=== PATIENT | male | born 1950 | race Caucasian/White ===

== ENCOUNTER 2017-06-22 18:18 | Emergency (ER) | payer BC, MEDICARE ==
[2017-06-22 18:58] LABS: BASOPHILS # (AUTO) 0.1 10^3/uL (0.0-0.1); BASOPHILS % (AUTO) 0.7 %; EOSINOPHILS # (AUTO) 0.2 10^3/uL (0.0-0.7); EOSINOPHILS % (AUTO) 1.5 %; HGB - HEMOGLOBIN 15.5 g/dL (14.0-18.0); LYMPHOCYTES # (AUTO) 1.5 10^3/uL (1.5-3.5); LYMPHOCYTES % (AUTO) 14.9 %; MEAN CORPUSCULAR HEMOGLOBIN 28.2 pg (27.0-31.0); MEAN CORPUSCULAR HGB CONC 33.8 g/dL (32.0-36.0); MEAN CORPUSCULAR VOLUME 83.5 fL (80.0-94.0); MEAN PLATELET VOLUME 9.2 fL (7.4-11.4); MONOCYTES # (AUTO) 0.8 10^3/uL (0.0-1.0); MONOCYTES % (AUTO) 7.9 %; NEUTROPHILS # (AUTO) 7.5 10^3/uL (1.5-6.6); PLT - PLATELET COUNT 180 10^3/uL (130-450); RED BLOOD COUNT 5.49 10^6/uL (4.70-6.10); WHITE BLOOD COUNT 9.9 x10^3/uL (4.8-10.8)
[2017-06-22 19:09] LABS: ALBUMIN 4.7 g/dL (3.2-5.5); ALBUMIN/GLOBULIN RATIO 1.5 (1.0-2.2); BILIRUBIN,TOTAL 0.5 mg/dL (0.2-1.0); CALCIUM 9.2 mg/dL (8.5-10.3); CREATININE 0.8 mg/dL (0.6-1.2); TOTAL PROTEIN 7.9 g/dL (6.7-8.2)
[2017-06-22 21:14] LABS: BILIRUBIN,URINE NEGATIVE (NEGATIVE); CLARITY,URINE CLEAR (CLEAR); GLUCOSE, URINE (UA) NEGATIVE (NEGATIVE); KETONES,URINE (UA) NEGATIVE (NEGATIVE); LEUKOCYTE ESTERASE, URINE NEGATIVE (NEGATIVE); NITRITE,URINE NEGATIVE (NEGATIVE); OCCULT BLOOD,URINE NEGATIVE (NEGATIVE); PH,URINE 5.5 PH (5.0-7.5); PROTEIN,URINE NEGATIVE (NEGATIVE); UROBILINOGEN,URINE 0.2 (NORMAL) E.U./dL (NORMAL)
--- NOTE | 2017-06-22 21:20 | XRAY Report ---
EXAM: CHEST RADIOGRAPHY EXAM DATE: 06/22/2017 08:43 PM. CLINICAL HISTORY: Epigastric pain. COMPARISON: None. TECHNIQUE: 2 views. FINDINGS: Lungs/Pleura: No focal opacities evident. No pleural effusion. No pneumothorax. Normal volumes. Mediastinum: Heart size is normal. Trachea is midline. Other: None. IMPRESSION: Negative for an acute cardiopulmonary abnormality. [facility] Referring Provider Line: [phone] SITE ID: [id number]
--- NOTE | 2017-06-22 21:20 | XRAY Preliminary Report ---
Exam: XR CHEST 2 VIEW X-RAY IMPRESSION: Negative for an acute cardiopulmonary abnormality. [facility] SITE ID: [id number]
--- NOTE | 2017-06-22 21:33 | ED Physician Documentation ---
PD HPI ABD PAIN - Stated complaint Stated Complaint: STOMACH PX, HEADACHE - Chief complaint Chief Complaint: Abd Pain - History obtained from History obtained from: Patient, Family - History of Present Illness Timing - onset: Yesterday Timing - details: Gradual onset, Intermittant Quality: Cramping, Aching Location: Epigastric Radiation: Chest, Upper back Worsened by: Eating, Position Associated symptoms: No: Fever, Nausea, Vomiting, Diarrhea, Constipation Similar symptoms before: Has not had sx before Recently seen: Not recently seen - Additional information Additional information: Patient is a 66 year old male with no significant past medical history who is presenting to the emergency department for abdominal pain. According to patient and over the last couple of days patient has had epigastric and substernal pain. Patient states that he just thought that it would go away. Patient states that it seemed worse after eating. Patient states that the pain goes into his back and his chest. Patient denies vomiting, fevers or chills. Review of Systems Constitutional: denies: Fever, Chills Eyes: reports: Reviewed and negative Ears: reports: Reviewed and negative Nose: reports: Reviewed and negative Throat: reports: Reviewed and negative Cardiac: reports: Chest pain / pressure. denies: Palpitations, Calf pain Respiratory: denies: Dyspnea GI: reports: Abdominal Pain, Nausea. denies: Vomiting, Constipation, Diarrhea : reports: Reviewed and negative Musculoskeletal: reports: Back pain. denies: Neck pain, Extremity pain Neurologic: denies: Generalized weakness, Focal weakness Immunocompromised: denies: Immunocompromised PD PAST MEDICAL HISTORY - Past Medical History Past Medical History: Yes Cardiovascular: None Respiratory: None Neuro: None Endocrine/Autoimmune: Type 2 diabetes GI: GERD : Kidney stones, Other HEENT: None Psych: None Musculoskeletal: None Other Past Medical History: Prostate CA - Past Surgical History Past Surgical History: Yes - Present Medications Home Medications: Ambulatory Orders Medication Instructions Recorded Confirmed Ciprofloxacin HCl [Cipro] 500 mg PO BID #14 tablet 06/22/17 Metronidazole [Flagyl] 500 mg PO TID #21 tablet 06/22/17 Olmesartan Medoxomil [Benicar] 25 mg PO DAILY 06/22/17 06/22/17 Ondansetron Odt [Zofran] 4 mg TL Q6H PRN #14 tablet 06/22/17 Ursodiol 300 mg PO BID #20 capsule 06/22/17 metFORMIN [Glucophage] 500 mg PO QID 06/22/17 06/22/17 - Allergies Allergies/Adverse Reactions: Allergies Allergy/AdvReac Type Severity Reaction Status Date / Time No Known Drug Allergies Allergy Verified 06/22/17 18:29 - Social History Does the pt smoke?: No Smoking Status: Never smoker Does the pt drink ETOH?: No Does the pt have substance abuse?: No - Immunizations Immunizations are current?: Yes - POLST Patient has POLST: No PD ED PE NORMAL - Vitals Vital signs reviewed: Yes - General General: Alert and oriented X 3, No acute distress - HEENT HEENT: Atraumatic, PERRL, Moist mucous membranes - Neck Neck: Supple, no meningeal sign - Cardiac Cardiac: RRR, No murmur - Respiratory Respiratory: No respiratory distress - Derm Derm: Normal color, Warm and dry, No rash - Extremities Extremities: No deformity, No edema - Neuro Neuro: Alert and oriented X 3, No motor deficit, Normal speech Eye Opening: Spontaneous PD ED PE EXPANDED - Abdomen Abdomen: Tender to palpation, Epigastric, Generalized/diffuse. No: Rebound, Guarding Results - Vitals Vitals: Vital Signs - 24 hr 06/22/17 06/22/17 18:26 23:27 Temperature 36.8 C Heart Rate 85 75 Respiratory 18 16 Rate Blood Pressure 145/91 H 176/102 H O2 Saturation 97 96 Oxygen O2 Source Room air - EKG (time done) 2020 Rate: Rate (enter#) (73) Rhythm: NSR [place]: Normal Intervals: Normal RI QRS: Normal Ischemia: Normal ST segments Compare to prior EKG: Old EKG unavailable - Labs Labs: Laboratory Tests 06/22/17 06/22/17 06/22/17 18:30 18:54 18:54 WBC 9.9 RBC 5.49 Hgb 15.5 Hct 45.9 MCV 83.5 MCH 28.2 MCHC 33.8 RDW 14.0 Plt Count 180 MPV 9.2 Neut # 7.5 H Lymph # 1.5 [place] # 0.8 Eos # 0.2 Baso # 0.1 Absolute Nucleated RBC 0.00 Nucleated RBC % 0.0 Sodium 137 Potassium 3.6 Chloride 101 Carbon Dioxide 24 Anion Gap 12.0 BUN 21 H Creatinine 0.8 Estimated GFR (MDRD) 97 Glucose 120 H Calcium 9.2 Total Bilirubin 0.5 AST 32 ALT 32 Alkaline Phosphatase 70 Troponin I Total Protein 7.9 Albumin 4.7 Globulin 3.2 Albumin/Globulin Ratio 1.5 Lipase 36 Urine Color YELLOW Urine Clarity CLEAR Urine pH 5.5 Ur Specific [place] 1.025 Urine Protein NEGATIVE Urine Glucose (UA) NEGATIVE Urine Ketones NEGATIVE Urine Occult Blood NEGATIVE Urine Nitrite NEGATIVE Urine Bilirubin NEGATIVE Urine Urobilinogen 0.2 (NORMAL) Ur Leukocyte Esterase NEGATIVE Ur Microscopic Review NOT INDICATED Urine Culture Comments NOT INDICATED 06/22/17 06/22/17 18:54 21:29 WBC RBC Hgb Hct MCV MCH MCHC RDW Plt Count MPV Neut # Lymph # [place] # Eos # Baso # Absolute Nucleated RBC Nucleated RBC % Sodium Potassium Chloride Carbon Dioxide Anion Gap BUN Creatinine Estimated GFR (MDRD) Glucose Calcium Total Bilirubin AST ALT Alkaline Phosphatase Troponin I < 0.04 < 0.04 Total Protein Albumin Globulin Albumin/Globulin Ratio Lipase Urine Color Urine Clarity Urine pH Ur Specific [place] Urine Protein Urine Glucose (UA) Urine Ketones Urine Occult Blood Urine Nitrite Urine Bilirubin Urine Urobilinogen Ur Leukocyte Esterase Ur Microscopic Review Urine Culture Comments - Rads (name of study) ct abdomen and pelvis Radiology: Final report received (gallbladder wall thickening and pericholecystic fluid) PD MEDICAL DECISION MAKING - ED course Complexity details: reviewed old records, reviewed results, re-evaluated patient , considered differential, d/w patient, d/w family, d/w building consultant ED course: patient was seen and examined at bedside. IV access was gained and labs were drawn. ekg was performed and was normal sinus. Patient was treated with a fluid bolus. patient's urine showed no signs of hematuria. Ct was ordered. When patient returned from imaging the results were reviewed. patient was found to have acute cholecystitis. patient was made aware of the findings but stated that he did not want to stay. orthopedically impaired teacher surgeon was contacted and the case was discussed with him. He stated we could start the patient on antibiotics and the patient could follow up tomorrow in the clinic. Patient was given detailed discharge and follow up instructions. Family understood and was stable for discharge with outpatient follow up. Departure - Departure Disposition: Home, Self Care Clinical Impression: Cholecystitis Condition: Good Instructions: ED Gallbladder Infec Poss Follow-Up: Ever Morgan MD [Provider Admit Priv/Credential] - Tomorrow Prescriptions: Ciprofloxacin HCl [Cipro] 500 mg PO BID #14 tablet Metronidazole [Flagyl] 500 mg PO TID #21 tablet Ondansetron Odt [Zofran] 4 mg TL Q6H PRN #14 tablet PRN Reason: Nausea / Vomiting Ursodiol 300 mg PO BID #20 capsule Comments: Your symptoms today are being caused by an infection of your gallbladder. Normally they require surgical removal, but I understand you want to try antibiotics. You will be started on two different antibiotics. It is important that you eat a fat free diet and call the office of Dr. Heredia tomorrow to schedule a follow up appointment. You should return to the emergency department for fevers, chills, vomiting, new worsening or uncontrollable symptoms. Discharge Date/Time: 06/22/17 23:30
[2017-06-22] MEDS ORDERED: IOPAMIDOL-300 100 ML VIAL ONE (21:37)
[2017-06-22] MEDS ORDERED: IOPAMIDOL-300 100 ML VIAL IVP ONE (21:50)
--- NOTE | 2017-06-22 22:32 | CT Report ---
EXAM: CT ABDOMEN AND PELVIS EXAM DATE: 06/22/2017 09:54 PM. CLINICAL HISTORY: Diffuse abdominal pain. COMPARISONS: None. TECHNIQUE: Routine helical CT imaging was performed through the abdomen and pelvis. IV contrast: 100M L ISOVUE 300. Enteric contrast: No. Reconstructions: Coronal and sagittal. In accordance with CT protocol optimization, one or more of the following dose reduction techniques w ere utilized for this exam: automated exposure control, adjustment of mA and/or KV based on patient s ize, or use of iterative reconstructive technique. FINDINGS: Lung Bases: No focal consolidation. Coronary artery calcifications. Liver: Fatty infiltration. Gallbladder/Bile Ducts: Gallbladder wall thickening or pericholecystic fluid. Suspect subtle noncalci fied gallstones. Spleen: Mildly enlarged at 13.3 cm. Pancreas: Normal. Adrenal Glands: Normal. Kidneys: Normal. No masses or hydronephrosis. Peritoneal Cavity/Bowel: Moderate stool in the colon, right greater than left. There are some colonic diverticula but no diverticulitis is seen. No bowel obstruction. No free air or free fluid. No lymph adenopathy. Appendix appears normal. Pelvic Organs: Status post prostatectomy. Urinary bladder is unremarkable. Penile prosthesis is noted . Vasculature: Mild atherosclerosis. No aortic aneurysm. Bones: Degenerative changes in the spine. Other: None. IMPRESSION: 1. Gallbladder wall thickening or pericholecystic fluid with possible subtle stones in the gallbladde r. Findings are suspicious for cholecystitis. 2. Fatty liver and mild splenomegaly. 3. Moderate stool in the colon, right greater than left. 4. No appendicitis or diverticulitis. [facility] Referring Provider Line: [phone] SITE ID: [id number]
--- NOTE | 2017-06-22 22:32 | CT Preliminary Report ---
Exam: CT ABDOMEN/PELVIS W/ IMPRESSION: 1. Gallbladder wall thickening or pericholecystic fluid with possible subtle stones in the gallbladde r. Findings are suspicious for cholecystitis. 2. Fatty liver and mild splenomegaly. 3. Moderate stool in the colon, right greater than left. 4. No appendicitis or diverticulitis. [facility] SITE ID: [id number]
[2017-06-22] MEDS ORDERED: CIPROFLOXACIN 250 MG TABLET PO STA (22:59)
[2017-06-22] MEDS ORDERED: metroNIDAZOLE 250 MG TABLET PO STA (22:59)
[2017-06-22 23:31] VITALS: BP 176/102
== END 2017-06-22 23:30 | disposition home or self-care (01) ==
LOC: ED 18:18
DX: K81.9 Cholecystitis, unspecified (principal); E11.9 Type 2 diabetes mellitus without complications; Z79.84 Long term (current) use of oral hypoglycemic drugs; C61 Malignant neoplasm of prostate
CPT/HCPCS: 36415; 71046; 74177; 80053; 81003; 83690; 84484; 85025; 93005; 99283; 99284; A9270; Q9967; 81001; 87086

== ENCOUNTER 2018-03-03 18:15 | Emergency (ER) | payer BC, MEDICARE ==
[2018-03-03] MEDS ORDERED: fentaNYL 100 MCG/2 ML VIAL IVP STA (18:32)
[2018-03-03] MEDS ORDERED: ONDANSETRON 4 MG/2 ML VIAL IVP STA (18:32)
[2018-03-03] MEDS ORDERED: diazePAM 5 MG TABLET PO STA (18:33)
[2018-03-03] MEDS ORDERED: HYDROcod/ACETAM 10 MG/325 MG TABLET PO STA (18:34)
[2018-03-03] MEDS ORDERED: NAPROXEN 250 MG TABLET PO STA (18:34)
--- NOTE | 2018-03-03 20:38 | CT Report ---
Reason: head injury on ASA Procedure Date: 03/03/2018 Accession Number: [id number] / [id number] Procedure: CT - Head W/O CPT Code: FULL RESULT: EXAM: CT HEAD EXAM DATE: 03/03/2018 08:22 PM. CLINICAL HISTORY: Head injury on ASA. COMPARISON: None. TECHNIQUE: Multiaxial CT images were obtained from the foramen magnum to the vertex. Reformats: Sagittal and coronal. IV contrast: None. In accordance with CT protocol optimization, one or more of the following dose reduction techniques were utilized for this exam: automated exposure control, adjustment of mA and/or KV based on patient size, or use of iterative reconstructive technique. FINDINGS: Parenchyma: No intraparenchymal hemorrhage. No evidence of mass, midline shift, or CT findings of infarction. Mckinley-white differentiation is distinct. Extraaxial Spaces: Normal for age. No subdural or epidural collections identified. Ventricles: Normal in size and position. Sinuses and Orbits: Imaged paranasal sinuses, orbits, and mastoids show no significant abnormality. Bones: No evidence of fracture or calvarial defect. Other: None. IMPRESSION: Negative nonenhanced head CT. [facility]
[2018-03-03 20:50] VITALS: BP 142/90
--- NOTE | 2018-03-03 21:05 | XRAY Report ---
Reason: pain Procedure Date: 03/03/2018 Accession Number: [id number] / [id number] Procedure: XR - Hip w/Pelvis 2-3V LT CPT Code: FULL RESULT: EXAM: LEFT HIP AND PELVIS RADIOGRAPHY EXAM DATE: 03/03/2018 08:20 PM. HISTORY: Pain. COMPARISONS: Abdomen/pelvis w/contrast 06/22/2017 9:42 PM. TECHNIQUE: 1 view of the pelvis and 1 view of the hip. A total of 3 exposures are provided for review. FINDINGS: Bones: No acute displaced fracture or suspicious bony lesion is demonstrated. Possible cam-type impingement about the left hip joint. Joints: No dislocation. Mild bilateral hip joint degenerative change. Soft Tissues: Penile prosthesis noted. IMPRESSION: No acute bony abnormality. Possible cam-type left hip impingement suspected. [facility]
--- NOTE | 2018-03-03 21:06 | XRAY Report ---
Reason: back pain Procedure Date: 03/03/2018 Accession Number: [id number] / [id number] Procedure: XR - Lumbar Spine 2 View CPT Code: FULL RESULT: EXAM: LUMBOSACRAL SPINE RADIOGRAPHY EXAM DATE: 03/03/2018 08:20 PM. CLINICAL HISTORY: Back pain. Fall, landing on the back, pain. COMPARISONS: Abdomen and pelvis with contrast 06/22/2017 9:42 PM. TECHNIQUE: 3 views. FINDINGS: Alignment: No subluxation. Bones: Five [id number] lumbar vertebral bodies are present. No fractures or bone lesions. Disks: Multilevel disk space height loss as well as endplate osteophytosis. Moderate to severe degenerative change at L3-L4. Facets: Multilevel facet arthropathy. Sacroiliac Joints: No diastases Soft Tissues: The visualized bowel gas pattern is normal. IMPRESSION: No acute bony abnormality. Moderate to severe L3-L4 degenerative disk disease. [facility]
--- NOTE | 2018-03-03 21:52 | ED Physician Documentation ---
PD HPI Fall - Stated complaint Stated Complaint: GLF PELVIC PX - Chief complaint Chief Complaint: Trauma Ext - History obtained from History obtained from: Patient - History of Present Illness Mechanism of injury: Tripped, Slipped Fall distance: Standing position Where injury occurred: Other (outside on the ice) Injury(ies) location: Head, Back, Left Lower Extremity Severity Comments: moderate Quality of pain: Throbbing, Aching Associated symptoms: Other (mp ASA). No: LOC, AMS, Amnesia, Seizures, Ear drainage, Nasal drainage, Neck pain, Weakness, Paresthesias, Dyspnea, Nausea / vomiting Symptoms improve with: Position Worsens with: Movement, Palpation Contributing factors: Anticoagulated. No: Intoxicated Similar symptoms before: No diagnosis Recently seen: Not recently seen Review of Systems Constitutional: denies: Fever, Fatigue Eyes: denies: Discharge Ears: denies: Ear pain Nose: denies: Congestion Throat: denies: Sore throat Cardiac: denies: Chest pain / pressure Respiratory: denies: Cough GI: denies: Abdominal Pain : denies: Hematuria Skin: denies: Laceration (s) Musculoskeletal: reports: Back pain, Extremity pain Neurologic: reports: Head injury PD PAST MEDICAL HISTORY - Past Medical History Past Medical History: Yes Cardiovascular: None Respiratory: None Neuro: None Endocrine/Autoimmune: Type 2 diabetes GI: GERD : Kidney stones, Other HEENT: None Psych: None Musculoskeletal: Osteoarthritis Derm: None Other Past Medical History: prostate cancer - Past Surgical History Past Surgical History: Yes - Present Medications Home Medications: Ambulatory Orders Medication Instructions Recorded Confirmed Hydrocodone/Acetaminophen [[place] 1 each PO Q6HR PRN #10 tablet 03/03/18 5-325 Tablet] Naproxen 500 mg PO BID PRN #60 tablet 03/03/18 - Allergies Allergies/Adverse Reactions: Allergies Allergy/AdvReac Type Severity Reaction Status Date / Time No Known Drug Allergies Allergy Verified 03/03/18 18:22 - Social History Does the pt smoke?: No Smoking Status: Never smoker Does the pt drink ETOH?: No Does the pt have substance abuse?: No - Immunizations Immunizations are current?: Yes - POLST Patient has POLST: No PD ED PE NORMAL - General General: Alert and oriented X 3 - HEENT HEENT: No: Atraumatic (The patient Has tenderness to palpation of the posterior scalp, no laceration or significant contusion or crepitus) - Neck Neck: No bony TTP - Cardiac Cardiac: RRR, Strong equal pulses - Respiratory Respiratory: No respiratory distress, Clear bilaterally - Abdomen Abdomen: Soft, Non tender, Non distended - Back Back: No spinal TTP (The patient has tenderness in the lumbar spine, no ecchymosis, soft tissue swelling or crepitus) - Derm Derm: Normal color - Extremities Extremities: No deformity, Normal ROM s pain, No edema. No: No tenderness to palpate (The patient has tenderness to palpation of the left hip up to the iliac crest, there is no significant contusion, no crepitus, no laceration. The patient otherwise has no joint tenderness of the other major joints. The patient has normal radial and dorsalis pedis pulses and normal cap refill and normal sensation light touch) - Neuro Neuro: Alert and oriented X 3, cleat feeder 2-12 intact, No motor deficit, Normal speech Results - Vitals Vitals: Vital Signs - 24 hr 03/03/18 03/03/18 18:17 20:49 Temperature 36.8 C Heart Rate 83 77 Respiratory 18 16 Rate Blood Pressure 147/83 H 142/90 H O2 Saturation 97 95 Oxygen O2 Source Room air - Rads (name of study) CT head Radiology: Final report received, See rad report (IMPRESSION: Negative nonenhanced head CT. ) XR lumbar Radiology: Final report received, See rad report (IMPRESSION: No acute bony abno rmality. Moderate to severe L3-L4 degenerative disk disease. ) XR Hip Radiology: Final report received, See rad report (IMPRESSION: No acute bony abnormality. Possible cam-type left hip impingement suspected. ) PD MEDICAL DECISION MAKING - ED course ED course: No acute injury seen on the patient's workup, on reevaluation is resting comfortably and his pain is under control. I discussed with him the incidental finding seen on x-ray. I recommended that he follow-up with orthopedics for these findings. The patient understands and agrees. I discussed warning signs and recommended returning to the emergency department immediately for any worsening or any concerns. Departure - Departure Disposition: 01 Home, Self Care Clinical Impression: Closed head injury Qualifiers: Encounter type: initial encounter Qualified Code(s): S09.90XA - Unspecified injury of head, initial encounter Contusion, hip Qualifiers: Encounter type: initial encounter Laterality: left Qualified Code(s): S70.02XA - Contusion of left hip, initial encounter Lumbar contusion Qualifiers: Encounter type: initial encounter Qualified Code(s): S30.0XXA - Contusion of lower back and pelvis, initial encounter Condition: Good Instructions: ED Contusion Back, ED Head Injury Closed Ch, ED Contusion Lower Extr Ch Follow-Up: Tl Moise MD [Primary Care Provider] - Within 1 week [facility] [Provider Group] (Call to schedule a follow-up appointment regarding the chronic findings related to your hip) Prescriptions: Hydrocodone/Acetaminophen [[place] 5-325 Tablet] 1 each PO Q6HR PRN #10 tablet PRN Reason: Pain Naproxen 500 mg PO BID PRN #60 tablet PRN Reason: Pain Comments: Please follow-up with primary care for recheck and reevaluation. Please follow- up with orthopedics for the chronic findings regarding your hip. Please return to the emergency department immediately for any worsening or any concerns. Discharge Date/Time: 03/03/18 22:11
== END 2018-03-03 22:11 | disposition home or self-care (01) ==
LOC: EDUNIT# → ED 18:15
DX: S09.90XA Unspecified injury of head, initial encounter (principal); S70.02XA Contusion of left hip, initial encounter; S30.0XXA Contusion of lower back and pelvis, initial encounter; W00.0XXA Fall on same level due to ice and snow, initial encounter; C61 Malignant neoplasm of prostate
CPT/HCPCS: 70450; 72100; 73502; 99283; A9270

== ENCOUNTER 2019-10-04 20:25 | Emergency (ER) | payer BC, MEDICARE ==
--- NOTE | 2019-10-04 20:55 | ED Physician Documentation ---
PD HPI CHEST PAIN - Stated complaint Stated Complaint: ACID REFLUX - Chief complaint Chief Complaint: Abd Pain - History obtained from History obtained from: Patient - History of Present Illness Timing - onset: Enter time (173), Today Timing - onset during: Rest Timing - duration: Hours Timing - details: Abrupt onset, Still present Quality: Sharp, Indigestion, Pain Location: Substernal Radiation: Abdominal Improved by: Nothing Worsened by: Movement, Palpation, Position. No: Exertion, Inspiration Associated symptoms: Nausea, Vomiting, Feeling faint / dizzy. No: General Weakness, Palpitations, Cough Similar symptoms before: Has not had sx before Recently seen: Not recently seen - Additional information Additional information: 69-year-old male with a history of type 2 diabetes hypertension and was well this morning when he awakened he had a normal breakfast and then he did not eat the rest of the day. At about 530 this evening he developed acute abdominal pain with nausea and heartburn and he developed a headache. He felt that he had body pain all over and was unable to get into a comfortable position he was transported the hospital by his and he indicates that on the way here he violently vomited a number of times. He also indicates that at home he was able to get some relief by being in the hot shower. He denies any cannabis use. Review of Systems Constitutional: reports: Myalgias, Sweats. denies: Fever, Chills, Fatigue Eyes: denies: Decreased vision Ears: denies: Ear pain Nose: denies: Rhinorrhea / runny nose, Congestion Throat: denies: Sore throat Cardiac: reports: Chest pain / pressure. denies: Palpitations, Pedal edema, Calf pain Respiratory: denies: Dyspnea, Cough, Wheezing GI: reports: Abdominal Pain, Nausea, Vomiting. denies: Constipation, Diarrhea : denies: Dysuria, Frequency Skin: denies: Rash Musculoskeletal: denies: Neck pain, Back pain, Extremity pain Neurologic: denies: Generalized weakness, Focal weakness, Numbness PD PAST MEDICAL HISTORY - Past Medical History Cardiovascular: None Respiratory: None Neuro: None Endocrine/Autoimmune: Type 2 diabetes GI: GERD : Kidney stones, Other HEENT: None Psych: None Musculoskeletal: Osteoarthritis Derm: None - Past Surgical History Past Surgical History: Yes - Present Medications Home Medications: Ambulatory Orders Medication Instructions Recorded Confirmed Hydrocodone/Acetaminophen [[place] 1 each PO Q6HR PRN #10 tablet 03/03/18 5-325 Tablet] Naproxen 500 mg PO BID PRN #60 tablet 03/03/18 - Allergies Allergies/Adverse Reactions: Allergies Allergy/AdvReac Type Severity Reaction Status Date / Time No Known Drug Allergies Allergy Verified 03/03/18 18:22 - Social History Does the pt smoke?: No Smoking Status: Never smoker Does the pt drink ETOH?: No Does the pt have substance abuse?: No - Immunizations Immunizations are current?: Yes - POLST Patient has POLST: No PD ED PE NORMAL - Vitals Vital signs reviewed: Yes (hypertensive ) - General General: Alert and oriented X 3, No acute distress, Well developed/nourished, Other (prefers to lie with his eyes closed. ) - HEENT HEENT: Atraumatic, PERRL, EOMI - Neck Neck: Supple, no meningeal sign, No bony TTP - Cardiac Cardiac: No murmur, Other (tachy to 115) - Respiratory Respiratory: No respiratory distress, Clear bilaterally - Abdomen Abdomen: Normal bowel sounds, Soft, Non tender, Non distended, No organomegaly, Other (obese) - Back Back: No CVA TTP, No spinal TTP - Derm Derm: Normal color, Warm and dry, No rash - Extremities Extremities: No deformity, No edema - Neuro Neuro: Alert and oriented X 3, a r specialist 2-12 intact, No motor deficit, No sensory deficit, Normal speech Eye Opening: To Voice Motor: Obeys Commands Verbal: Oriented GCS Score: 14 - Psych Psych: Normal mood, Normal affect Results - Vitals Vitals: Vital Signs - 24 hr 10/04/19 10/04/19 10/04/19 20:36 20:57 21:05 Temperature 37.1 C Heart Rate 100 123 H Respiratory 16 18 18 Rate Blood Pressure 157/77 H 156/92 H O2 Saturation 98 99 10/04/19 10/04/19 10/04/19 21:13 21:36 22:15 Temperature Heart Rate 111 H 113 H Respiratory 18 18 18 Rate Blood Pressure 172/84 H 144/84 H O2 Saturation 99 99 10/04/19 10/04/19 10/04/19 22:55 23:35 23:58 Temperature Heart Rate 110 H 117 H Respiratory 17 19 18 Rate Blood Pressure 140/85 H 145/95 H O2 Saturation 98 97 10/04/19 10/05/19 10/05/19 23:59 01:06 01:09 Temperature Heart Rate 113 H Respiratory 18 18 19 Rate Blood Pressure 122/76 O2 Saturation 95 Oxygen O2 Source Room air - EKG (time done) 2046 Rate: Rate (enter#) (116) Rhythm: Atrial fibrillation Ischemia: Normal ST segments Compare to prior EKG: Changed from prior EKG (SPT 06-22-2017 the rhythm has changed to afib and the rate is increased. ) Computer interpretation: Agree with computer - Labs Labs: Laboratory Tests 10/04/19 10/04/19 10/04/19 21:00 21:00 21:00 WBC 8.7 RBC 5.09 Hgb 14.9 Hct 44.7 MCV 87.8 MCH 29.3 MCHC 33.3 RDW 12.9 Plt Count 141 MPV 11.0 Neut # (Auto) 7.3 H Lymph # (Auto) 1.0 L Nye # (Auto) 0.2 Eos # (Auto) 0.1 Baso # (Auto) 0.0 Absolute Nucleated RBC 0.00 Nucleated RBC % 0.0 Sodium 141 Potassium 3.7 Chloride 99 L Carbon Dioxide 25 Anion Gap 17.0 H BUN 17 Creatinine 1.0 Estimated GFR (MDRD) 74 L Glucose 140 H Calcium 9.6 Total Bilirubin 2.1 H AST 238 H ALT 176 H Alkaline Phosphatase 81 Troponin I High Sens 2.6 B-Natriuretic Peptide Total Protein 7.7 Albumin 4.5 Globulin 3.2 Albumin/Globulin Ratio 1.4 Lipase 56 H Urine Color Urine Clarity Urine pH Ur Specific [place] Urine Protein Urine Glucose (UA) Urine Ketones Urine Occult Blood Urine Nitrite Urine Bilirubin Urine Urobilinogen Ur Leukocyte Esterase Ur Microscopic Review Urine Culture Comments Urine Opiates Screen Ur Oxycodone Screen Urine Methadone Screen Ur Propoxyphene Screen Ur Barbiturates Screen Ur Tricyclics Screen Ur Phencyclidine Scrn Ur Amphetamine Screen U Methamphetamines Scrn U Benzodiazepines Scrn Urine Cocaine Screen U Cannabinoids Screen 10/04/19 10/04/19 10/04/19 21:00 22:20 22:20 WBC RBC Hgb Hct MCV MCH MCHC RDW Plt Count MPV Neut # (Auto) Lymph # (Auto) Nye # (Auto) Eos # (Auto) Baso # (Auto) Absolute Nucleated RBC Nucleated RBC % Sodium Potassium Chloride Carbon Dioxide Anion Gap BUN Creatinine Estimated GFR (MDRD) Glucose Calcium Total Bilirubin AST ALT Alkaline Phosphatase Troponin I High Sens B-Natriuretic Peptide 37 Total Protein Albumin Globulin Albumin/Globulin Ratio Lipase Urine Color YELLOW Urine Clarity CLEAR Urine pH 5.5 Ur Specific [place] 1.025 Urine Protein NEGATIVE Urine Glucose (UA) NEGATIVE Urine Ketones TRACE Urine Occult Blood NEGATIVE Urine Nitrite NEGATIVE Urine Bilirubin NEGATIVE Urine Urobilinogen 1 (NORMAL) Ur Leukocyte Esterase NEGATIVE Ur Microscopic Review NOT INDICATED Urine Culture Comments NOT INDICATED Urine Opiates Screen NEGATIVE Ur Oxycodone Screen NEGATIVE Urine Methadone Screen NEGATIVE Ur Propoxyphene Screen NEGATIVE Ur Barbiturates Screen NEGATIVE Ur Tricyclics Screen NEGATIVE Ur Phencyclidine Scrn NEGATIVE Ur Amphetamine Screen NEGATIVE U Methamphetamines Scrn NEGATIVE U Benzodiazepines Scrn NEGATIVE Urine Cocaine Screen NEGATIVE U Cannabinoids Screen NEGATIVE 10/05/19 00:24 WBC RBC Hgb Hct MCV MCH MCHC RDW Plt Count MPV Neut # (Auto) Lymph # (Auto) Nye # (Auto) Eos # (Auto) Baso # (Auto) Absolute Nucleated RBC Nucleated RBC % Sodium Potassium Chloride Carbon Dioxide Anion Gap BUN Creatinine Estimated GFR (MDRD) Glucose Calcium Total Bilirubin AST ALT Alkaline Phosphatase Troponin I High Sens 5.1 B-Natriuretic Peptide Total Protein Albumin Globulin Albumin/Globulin Ratio Lipase Urine Color Urine Clarity Urine pH Ur Specific [place] Urine Protein Urine Glucose (UA) Urine Ketones Urine Occult Blood Urine Nitrite Urine Bilirubin Urine Urobilinogen Ur Leukocyte Esterase Ur Microscopic Review Urine Culture Comments Urine Opiates Screen Ur Oxycodone Screen Urine Methadone Screen Ur Propoxyphene Screen Ur Barbiturates Screen Ur Tricyclics Screen Ur Phencyclidine Scrn Ur Amphetamine Screen U Methamphetamines Scrn U Benzodiazepines Scrn Urine Cocaine Screen U Cannabinoids Screen - Rads (name of study) chest Radiology: Prelim report reviewed (Impression: 1. Suboptimal film secondary to low lung volumes. 2. Possible bilateral infrahilar strandy opacities, most likely atelectasis. Focal consolidations are not identified. 3. Glenohumeral joint degeneration bilaterally.), EMP read indepedently, See rad report Procedures - IVC sono (time) 2129 Bedside IVC sono: IVC measures (cm) (1.02), Dehydration (est 1-2 liter deficit.) PD MEDICAL DECISION MAKING - ED course Complexity details: reviewed old records, reviewed results, re-evaluated patient, considered differential, d/w patient ED course: Previously well 69-year-old male with a history of type 2 diabetes and hypertension has had an episode this evening of reflux accompanied by overall body pains and inability to get comfortable. He subsequently developed a headache and his heartburn and nausea have improved. He did vomit on the way to the hospital and he has improvement with use of the Zofran. He does report getting relief being in the shower. He denies use of cannabis. His family history is remarkable to longevity. His parents are celebrating their 75th wedding aniversary today. On work-up here today we have noted his blood work is concerning for elevation in AST ALT and bilirubin with a normal alk phos. An ultrasound was obtained to rule out obstruction and he does have multiple gallstones but a normal appearing common bile duct and negative Garcia's as well as a normal wall thickness and no evidence of jose luis-Dianna cystic fluid. He was found to be dehydrated on interrogation of the inferior vena cava and he was tachycardic on arrival to the emergency department. Intravenous saline was begun. He was administered Zofran. He had improvement in his nausea he had resolution of his heartburn and he continued to have headache. He was subsequently administered Toradol intravenously. The patients symptoms are controlled and he continues to be tachy. He indicates he has a lot of stress at work. He works for [employer] and 1000 people per week are loosing their jobs. He is not ready to retire. Departure - Departure Disposition: 01 Home, Self Care Clinical Impression: Dehydration, Stress at work Cholelithiasis Qualifiers: Cholelithiasis location: gallbladder Cholecystitis presence: without cholecystitis Biliary obstruction: without biliary obstruction Qualified Code(s): K80.20 - Calculus of gallbladder without cholecystitis without obstruction Vomiting Qualifiers: Vomiting type: unspecified Vomiting Intractability: non-intractable Nausea presence: with nausea Qualified Code(s): R11.2 - Nausea with vomiting, unspecified Condition: Stable Instructions: Gallstones, ED Stress React, ED Dehydration, ED Nausea Vomiting Follow-Up: Tl Moise MD [Primary Care Provider] -
[2019-10-04 21:09] LABS: BASOPHILS % (AUTO) 0.5 %; EOSINOPHILS # (AUTO) 0.1 10^3/uL (0.0-0.7); HGB - HEMOGLOBIN 14.9 g/dL (14.0-18.0); MEAN CORPUSCULAR HEMOGLOBIN 29.3 pg (27.0-31.0); MEAN CORPUSCULAR HGB CONC 33.3 g/dL (32.0-36.0); MEAN CORPUSCULAR VOLUME 87.8 fL (80.0-94.0); MONOCYTES # (AUTO) 0.2 10^3/uL (0.0-1.0); MONOCYTES % (AUTO) 2.2 %; NEUTROPHILS # (AUTO) 7.3 10^3/uL (1.5-6.6); NEUTROPHILS % (AUTO) 83.8 %; PLT - PLATELET COUNT 141 10^3/uL (130-450); RED BLOOD COUNT 5.09 10^6/uL (4.70-6.10); RED CELL DISTRIBUTION WIDTH 12.9 % (12.0-15.0); WHITE BLOOD COUNT 8.7 x10^3/uL (4.8-10.8)
[2019-10-04 21:18] LABS: ALBUMIN 4.5 g/dL (3.2-5.5); ALBUMIN/GLOBULIN RATIO 1.4 (1.0-2.2); BILIRUBIN,TOTAL 2.1 mg/dL (0.2-1.0); CALCIUM 9.6 mg/dL (8.5-10.3); TOTAL PROTEIN 7.7 g/dL (6.7-8.2)
[2019-10-04] MEDS ORDERED: SODIUM CHLORIDE 0.9% 1,000 ML IV STA (21:46)
--- NOTE | 2019-10-04 21:52 | XRAY Report ---
PROCEDURE: Chest 1 View X-Ray INDICATIONS: chest pain TECHNIQUE: One view of the chest was acquired. COMPARISON: 06/22/2017 FINDINGS: Surgical changes and devices: None. Lungs and pleura: Low lung volumes crowd the central bronchovascular markings. Given this, questiona ble bilateral infrahilar strand-like opacities. No dense consolidations. No pleural effusions or pneu mothorax. Mediastinum: Mediastinal contours appear normal. Heart size is normal. Bones and chest wall: No suspicious bony lesions. Severe bilateral degeneration of the glenohumeral joints. Overlying soft tissues appear unremarkable. IMPRESSION: 1. Suboptimal film secondary to low lung volumes. 2. Possible bilateral infrahilar strandy opacities, most likely atelectasis. Focal consolidations are not identified. 3. Glenohumeral joint degeneration bilaterally. Reviewed by: Sherrell Cai MD on 10/04/2019 9:51 PM PDT Approved by: Sherrell Cai MD on 10/04/2019 9:51 PM PDT Station ID: [id number]
[2019-10-04 22:32] LABS: BILIRUBIN,URINE NEGATIVE (NEGATIVE); GLUCOSE, URINE (UA) NEGATIVE (NEGATIVE); KETONES,URINE (UA) TRACE mg/dL (NEGATIVE); LEUKOCYTE ESTERASE, URINE NEGATIVE (NEGATIVE); NITRITE,URINE NEGATIVE (NEGATIVE); OCCULT BLOOD,URINE NEGATIVE (NEGATIVE); PH,URINE 5.5 PH (5.0-7.5); PROTEIN,URINE NEGATIVE (NEGATIVE); UROBILINOGEN,URINE 1 (NORMAL) E.U./dL (NORMAL)
[2019-10-04 22:34] LABS: CLARITY,URINE CLEAR (CLEAR)
[2019-10-05] MEDS ORDERED: SODIUM CHLORIDE 0.9% 1,000 ML IV STA (00:09)
[2019-10-05] MEDS ORDERED: KETOROLAC 30 MG/ML VIAL IVP STA (00:09)
[2019-10-05] MEDS ORDERED: ONDANSETRON 4 MG/2 ML VIAL IVP STA (00:22)
[2019-10-05 00:33] LABS: MUDS CUTOFF CONCENTRATIONS CUTOFF CONC BELOW:
[2019-10-05 00:44] LABS: AMPHETAMINE SCREEN,URINE NEGATIVE (NEGATIVE); BENZODIAZEPINES SCREEN, URINE NEGATIVE (NEGATIVE); COCAINE SCREEN URINE NEGATIVE (NEGATIVE); METHADONE SCREEN, URINE NEGATIVE (NEGATIVE); METHAMPHETAMINES SCREEN, URINE NEGATIVE (NEGATIVE); OPIATE SCREEN, URINE NEGATIVE (NEGATIVE); OXYCODONE SCREEN, URINE NEGATIVE (NEGATIVE); PROPOXYPHENE SCREEN, URINE NEGATIVE (NEGATIVE); TRICYCLIC ANTIDEPRESSANT,URINE NEGATIVE (NEGATIVE)
[2019-10-05 01:07] VITALS: BP 122/76
[2019-10-05] MEDS ORDERED: ONDANSETRON ODT 4 MG Prepack 2 TL PRN (01:22)
--- NOTE | 2019-10-05 09:24 | Ultrasound Report ---
PROCEDURE: Abdomen Limited INDICATIONS: abdominal pain ? billiary obstruction TECHNIQUE: Real-time focused scanning was performed of the abdomen, with image documentation. COMPARISON: CT abdomen and pelvis, 06/22/2017. FINDINGS: There are gallstones and gallbladder sludge. Gallbladder wall thickness is normal. No jose luis cholecystic fluid collection or sonographic Garcia's sign. Liver is enlarged and demonstrates increased hepatic echotexture. Liver measures 22 cm in length. Right kidney is normal in size without hydronephrosis. A cortical scar is noted in the right kidney. There is a 7 mm nonshadowing echogenic focus in right kidney. IMPRESSION: 1. Cholelithiasis. No ultrasound findings to suggest acute cholecystitis. 2. Hepatomegaly. Liver demonstrates increased echotexture. Differential diagnoses include hepatic fat ty infiltration versus other hepatocellular disease. Please correlate with liver enzymes. 3. A 7 mm echogenic focus without shadowing adjacent to a cortical scar, most likely caused by a nons hadowing calcification. A differential diagnosis is a small angiomyolipoma. No hydronephrosis. Reviewed by: Merle Alvarez MD on 10/05/2019 9:23 AM PDT Approved by: Merle Alvarez MD on 10/05/2019 9:23 AM PDT Station ID: [id number]
== END 2019-10-05 01:42 | disposition home or self-care (01) ==
LOC: ED 20:25
DX: E86.0 Dehydration (principal); R11.10 Vomiting, unspecified; F43.9 Reaction to severe stress, unspecified; R94.5 Abnormal results of liver function studies; K80.20 Calculus of gallbladder without cholecystitis without obstruction; E11.9 Type 2 diabetes mellitus without complications; I10 Essential (primary) hypertension
CPT/HCPCS: 36415; 71045; 76705; 80053; 80306; 81001; 81003; 83690; 83880; 84484; 85025; 87086; 93005; 96361; 96374; 96375; 99284

== ENCOUNTER 2020-05-07 07:00 | Outpatient (CLI) | payer BC, MEDICARE | END 2020-05-07 23:59 | disposition home or self-care (01) | LOC: COV 07:00 | PROVIDERS: ATTEND Surgery | DX: Z01.812 Encounter for preprocedural laboratory examination (principal); K43.2 Incisional hernia without obstruction or gangrene; E11.9 Type 2 diabetes mellitus without complications; Z20.822 Contact with and (suspected) exposure to COVID-19 ==

== ENCOUNTER 2020-05-10 06:34 | Day surgery (SDC) | payer BC, MEDICARE ==
[~2020-05-10 06:34] MED LIST: ceFAZolin 2 GM/50 ML 2 GM/50 ML BAG IV ONE
[2020-05-10] MEDS ORDERED: LACTATED RINGERS 1,000 ML IV ONE ×2 (06:52→10:27)
--- NOTE | 2020-05-10 07:33 | ANESTHESIA ---
Pre-Anesthesia VS, & Labs - Diagnosis incisional hernia - Procedure incisional hernia repair Vital Signs: Temp Pulse Resp BP Pulse Ox 36 C L 16 L 16 145/96 H 95 05/10/20 06:40 05/10/20 06:40 05/10/20 06:40 05/10/20 06:40 05/10/20 06:40 Height: 6 ft Weight (kg): 104 kg Body Mass Index: 31.1 BMI Classification: Obese - NPO >8 hours - Lab Results Current Lab Results: Laboratory Tests 05/10/20 06:51: POC Whole Bld Glucose 176 H Home Medications and Allergies Home Medications: Ambulatory Orders Metformin HCl [Glucophage] 1,000 mg PO BIDWM 05/01/20 Olmesartan Medoxomil [Benicar] 20 mg PO DAILY 05/01/20 Rosuvastatin Calcium [Crestor] 20 mg PO DAILY 05/01/20 Metformin HCl [Glucophage] 1,000 mg PO BIDWM 05/01/20 Olmesartan Medoxomil [Benicar] 20 mg PO DAILY 05/01/20 Rosuvastatin Calcium [Crestor] 20 mg PO DAILY 05/01/20 Allergies/Adverse Reactions: Allergies Allergy/AdvReac Type Severity Reaction Status Date / Time No Known Drug Allergies Allergy Verified 03/03/18 18:22 Anes History & Medical History - Anesthetic History Anesthesia Complications: reports: No previous complications - Medical History Cardiovascular: reports: None Pulmonary: reports: None Gastrointestinal: reports: None Urinary: reports: Other Neuro: reports: None Musculoskeletal: reports: Osteoarthritis Endocrine/Autoimmune: reports: Type 2 diabetes Blood Disorders: reports: None Skin: reports: None Smoking Status: Never smoker History of Cancer?: Yes - Surgical History General: Colonoscopy Eyes Ears Nose Throat (EENT): Tonsil/Adenoidectomy Urologic: Prostatic surgery Exam Dental: WNL Neck Mobility: Normal Mallampati classification: II Thyromental Distance: greater than 6 cm Respiratory: Lungs clear Cardiovascular: Regular rate Plan Anesthesia Type: General Consent for Procedure(s) Verified and Reviewed: Yes Code Status: Attempt Resuscitation ASA classification: 2-Mild systemic disease Is this case an emergency?: No
[2020-05-10] MEDS ORDERED: METOCLOPRAMIDE 10 MG/2 ML VIAL IVP PRN (07:40)
[2020-05-10] MEDS ORDERED: fentaNYL 100 MCG/2 ML VIAL IVP PRN (07:40)
[2020-05-10] MEDS ORDERED: ATROPINE ABBOJECT 1 MG/10 ML SYRINGE IVP PRN (07:40)
[2020-05-10] MEDS ORDERED: NALOXONE 0.4 MG/ML VIAL IVP PRN (07:40)
[2020-05-10] MEDS ORDERED: ONDANSETRON 4 MG/2 ML VIAL IVP PRN ×2 (07:40→10:40)
[2020-05-10] MEDS ORDERED: MORPHINE 2 MG/ML CARPUJECT IVP PRN (07:40)
[2020-05-10] MEDS ORDERED: ePHEDrine 50 MG/ML VIAL IVP PRN (07:40)
[2020-05-10] MEDS ORDERED: HYDROmorphone 0.5 MG/0.5 ML SYRINGE IVP PRN ×2 (07:40→10:40)
[2020-05-10] MEDS ORDERED: LACTATED RINGERS 1,000 ML IV SCH (08:00)
[2020-05-10] MEDS ORDERED: BUPIVACAINE 0.5% PF 30 ML VIAL ONE (09:01)
[2020-05-10] MEDS ORDERED: ROCURONIUM 50 MG/5 ML VIAL ONE (09:15)
[2020-05-10] MEDS ORDERED: PROPOFOL 200 MG/20 ML VIAL IVP ONE ×2 (09:15→10:26)
[2020-05-10] MEDS ORDERED: fentaNYL 100 MCG/2 ML VIAL ONE ×2 (09:15→09:55)
[2020-05-10] MEDS ORDERED: LIDOCAINE-MPF 2% 5 ML VIAL ONE (09:15)
[2020-05-10] MEDS ORDERED: MIDAZOLAM 2 MG/2 ML VIAL ONE (09:15)
[2020-05-10] MEDS ORDERED: BUPIVACAINE 0.5% PF 30 ML VIAL INFIL ONE ×2 (09:37→10:14)
[2020-05-10] MEDS ORDERED: DEXAMETHASONE 4 MG/ML VIAL ONE (09:40)
[2020-05-10] MEDS ORDERED: ONDANSETRON 4 MG/2 ML VIAL ONE (09:40)
[2020-05-10] MEDS ORDERED: KETOROLAC 30 MG/ML VIAL ONE (09:41)
--- NOTE | 2020-05-10 10:25 | OPERATIVE REPORT ---
Operative Report - General Procedure Date: 05/10/20 Planned Procedure: Incisional herniorrhaphy with mesh Pre-Op Diagnosis: Incisional hernia in the supraumbilical position (ICD-10 K43.2) Procedure Performed: Incisional herniorrhaphy with mesh (CPT 35467 +[id number]) Post Op Diagnosis: Incisional hernia in the supraumbilical position - Procedure Note Primary Surgeon: Ever Morgan MD Anesthesia Provider: Louise Haynes CRNA Anesthesia Technique: General ET tube, Local (30 mL of half percent Marcaine) IV Fluids (mL): 200 Estimated Blood Loss (mL): 5 Drain/Tube Type: Other (None.) Complications: None. - Other Other Information/Narrative: After verbal and written informed consent was obtained detailing the operation, the alternatives the operation including no operation, risks of infection, bleeding requiring transfusion with its risks, nerve injury, and and after I met with the patient confirming the surgery and the site of surgery, the patient was brought to the operative suite and placed supine on the operating table. Great care was taken to avoid pressure points to prevent pressure necrosis or nerve injury. Monitoring devices were applied along with TEDs and pneumatic compression stockings (to prevent DVT). The patient received preoperative antibiotics for surgical prophylaxis. Louise Haynes CRNA sedated and anesthetized the patient for the entire procedure. The patient was prepped and draped in the usual sterile manner. With the patient draped my initials were clearly visible. A "time in" then confirmed that the patient was identified with 3 identifiers (name, date, and medical record number), the history and physical was updated and in the chart, the signed consent confirming the procedure was in the chart, the patient was in the correct position, the aforementioned prophylactic measures were in place or given, we had the correct personnel and equipment to complete the procedure and that anesthesia and the surgical team were given an opportunity to express any concerns. With the agreement of everyone in the room we proceeded with the operation. A 15 blade scalpel was used to trace the previous incision at the supraumbilical site. This was taken down to the subcutaneous tissues and the subcutaneous tissues adherence to the hernia sac were dissected free using a combination of Metzenbaum scissors as well as Bovie electrocautery. Meticulous hemostasis was obtained using Bovie electrocautery. The fascial defect and hernia sac were defined and the hernia sac was excised using Bovie electrocautery. Adherence of the omentum to the peritoneum was taken down using a combination of Metzenbaum scissors as well as Bovie electrocautery. In this manner the anterior abdominal wall was clearly freed of any adhesions for 7 cm in every direction (the length of my finger). The fascial defect was measured to be 3 cm in height and 3-1/2 cm in width. A Ventralex ST hernia patch (reference #[id number], lot # [id number], use by date 2021-11-24) 8 cm in diameter was obtained and placed into the abdomen making sure that it would lay flat. This was then sutured to the anterior abdominal wall/fascia using 0 PDS superiorly and inferiorly including a portion of the strap. The excess strap was cut. The mesh was then further secured to the fascia circumferentially with stitches at the 130, 3, 430, 730, 9, and 1030 o'clock positions. These were all simple stitches. None of the stitches were run. At the lateral edges of the hernia defect a 2-0 Vicryl was used to help approximate the edges a bit further to help decrease the size of the defect. The same 2-0 Vicryl was then used to sew portion of the skin down at the umbilicus to try to give the patient a "innie." The fascia was then injected with 20 mL of half percent Marcaine and I retained the additional 10 mL for the skin. The skin incision was approximated with 4-0 Monocryl in a subcuticular fashion. The remaining 10 mL of half percent Marcaine was injected in the subcutaneous tissues and skin. The skin was cleaned of its prep and Dermabond was applied. At this point a timeout was performed that confirmed that all counts were correct x2, the procedure that was performed, the blood loss, the IV fluids administered, the patient's condition, and any concerns of the operating team had. Having tolerated the procedure well, the patient was taken recovery room in good and stable condition. The plan is for outpatient discharge when the patient is adequately recovered. This document was created in part using voice recognition technology. Because of the inherent limitations of the system, occasional same sounding word substitutions and grammatical errors do occur and persist despite proofreading. Please read this document for content.
--- NOTE | 2020-05-10 10:34 | ANESTHESIA POST OP EVALUATION ---
Anesthesia Post Eval - Post Anesthesia Eval Vitals: Last Vital Signs Temp 41318 C H 05/10/20 10:28 Pulse 92 05/10/20 10:28 Resp 16 05/10/20 10:28 BP 156/93 H 05/10/20 10:28 Pulse Ox 99 05/10/20 10:28 CV Function Including HR & BP: positive: Stable Pain Control: positive: Satisfactory Nausea & Vomiting: positive: Negative Mental Status: positive: Patient Participates Respiratory Status: Airway Patent Hydration Status: Satisfactory Anesthesia Complications: positive: None
[2020-05-10] MEDS ORDERED: HYDROcod/ACETAM 5/325 MG TABLET PO PRN ×2 (10:40→10:42)
[2020-05-10] MEDS ORDERED: HYDROcod/ACETAM 5/325 MG TABLET ONE (11:23)
[2020-05-10 12:02] VITALS: BP 132/76
== END 2020-05-10 06:35 | disposition home or self-care (01) ==
LOC: SDS 06:34
PROVIDERS: ATTEND Surgery
DX: K43.2 Incisional hernia without obstruction or gangrene (principal); E11.9 Type 2 diabetes mellitus without complications; Z79.84 Long term (current) use of oral hypoglycemic drugs; E66.9 Obesity, unspecified; Z68.31 Body mass index [BMI] 31.0-31.9, adult
CPT/HCPCS: 49560; 49568; A9270; C1781; J0690; J7120

== ENCOUNTER 2021-04-02 00:47 | Emergency (ER) | payer BC, MEDICARE ==
--- NOTE | 2021-04-02 01:49 | ED Physician Documentation ---
History of Present Illness - Stated complaint Stated Complaint: ACID REFLUX, VOMITING - Chief complaint Chief Complaint: General - History obtained from History obtained from: Patient - History of Present Illness Timing: Enter time (19:00), Last night (04/01/21) Pain level now: 3 Improved by: nothing Worsened by: palpation - Additonal information Additional information: c/o diffuse burning abdominal pain shortly after dinner, onset approximately 7 PM. The pain has gradually spread to anterior chest and back and associated with nausea and vomiting. He says he has had similar previous episodes without diagnosis Review of Systems Constitutional: reports: Reviewed and negative Cardiac: reports: Chest pain / pressure. denies: Palpitations, Pedal edema Respiratory: reports: Reviewed and negative GI: reports: Abdominal Pain, Nausea, Vomiting. denies: Abdominal Swelling, Diarrhea, Hematemesis, Bloody / black stool : denies: Dysuria, Frequency PD PAST MEDICAL HISTORY - Past Medical History Cardiovascular: None Respiratory: None Neuro: None Endocrine/Autoimmune: Type 2 diabetes GI: None : Other HEENT: Chronic vision loss Psych: None Musculoskeletal: Osteoarthritis Derm: None - Past Surgical History Past Surgical History: Yes General: Colonoscopy HEENT: Tonsil/Adenoidectomy - Present Medications Home Medications: Ambulatory Orders Medication Instructions Recorded Confirmed Metformin HCl [Glucophage] 1,000 mg PO BIDWM 05/01/20 05/10/20 Olmesartan Medoxomil [Benicar] 20 mg PO DAILY 05/01/20 05/10/20 Rosuvastatin Calcium [Crestor] 20 mg PO DAILY 05/01/20 05/10/20 Docusate Sodium 250Mg Capsule 250 mg PO DAILY #10 cap 05/10/20 [Colace 250Mg Capsule] HYDROcod/ACETAM 5/325 [[place] 5/325] 1 each PO Q4H #20 tab 05/10/20 Ondansetron Odt [Zofran Odt] 4 mg TL Q6H PRN #10 tablet 04/02/21 oxyCODONE [Roxicodone] 5 mg PO Q4-6H PRN #14 tablet 04/02/21 - Allergies Allergies/Adverse Reactions: Allergies Allergy/AdvReac Type Severity Reaction Status Date / Time No Known Drug Allergies Allergy Verified 03/03/18 18:22 - Social History Does the pt smoke?: No Smoking Status: Never smoker Does the pt drink ETOH?: No Does the pt have substance abuse?: No - Immunizations Immunizations are current?: Yes - POLST Patient has POLST: No PD ED PE NORMAL - Vitals Vital signs reviewed: Yes - General General: Alert and oriented X 3, Well developed/nourished, Other (appears to be in significant painful distress) - HEENT HEENT: Moist mucous membranes - Cardiac Cardiac: No murmur - Respiratory Respiratory: No respiratory distress, Clear bilaterally - Abdomen Abdomen: Soft, Non distended, Other (diffuse TTP with guarding ) - Derm Derm: Normal color, Warm and dry PD ED PE EXPANDED - Cardiac Cardiac: Tachy, Regular Rhythm Results - Vitals Vitals: Oxygen O2 Source Room air - Labs Labs: Laboratory Tests 04/02/21 04/02/21 04/02/21 02:10 02:10 02:10 WBC 13.8 H RBC 5.24 Hgb 15.1 Hct 43.8 MCV 83.6 MCH 28.8 MCHC 34.5 RDW 13.1 Plt Count 212 MPV 11.3 Neut # (Auto) 10.6 H Lymph # (Auto) 2.1 [place] # (Auto) 0.7 Eos # (Auto) 0.3 Baso # (Auto) 0.1 Absolute Nucleated RBC 0.00 Nucleated RBC % 0.0 Sodium 140 Potassium 3.9 Chloride 98 L Carbon Dioxide 26 Anion Gap 16.0 H BUN 26 H Creatinine 1.2 Estimated GFR (MDRD) 60 L Glucose 222 H Calcium 10.0 Total Bilirubin 1.7 H AST 105 H ALT 84 H Alkaline Phosphatase 71 Troponin I High Sens 5.9 Total Protein 8.4 H Albumin 4.9 Globulin 3.5 Albumin/Globulin Ratio 1.4 Lipase 66 H Urine Color Urine Clarity Urine pH Ur Specific [place] Urine Protein Urine Glucose (UA) Urine Ketones Urine Occult Blood Urine Nitrite Urine Bilirubin Urine Urobilinogen Ur Leukocyte Esterase Ur Microscopic Review Urine Culture Comments 04/02/21 03:00 WBC RBC Hgb Hct MCV MCH MCHC RDW Plt Count MPV Neut # (Auto) Lymph # (Auto) [place] # (Auto) Eos # (Auto) Baso # (Auto) Absolute Nucleated RBC Nucleated RBC % Sodium Potassium Chloride Carbon Dioxide Anion Gap BUN Creatinine Estimated GFR (MDRD) Glucose Calcium Total Bilirubin AST ALT Alkaline Phosphatase Troponin I High Sens Total Protein Albumin Globulin Albumin/Globulin Ratio Lipase Urine Color YELLOW Urine Clarity CLEAR Urine pH 5.5 Ur Specific [place] 1.025 Urine Protein NEGATIVE Urine Glucose (UA) 100 H Urine Ketones 15 H Urine Occult Blood NEGATIVE Urine Nitrite NEGATIVE Urine Bilirubin NEGATIVE Urine Urobilinogen 1 (NORMAL) Ur Leukocyte Esterase NEGATIVE Ur Microscopic Review NOT INDICATED Urine Culture Comments NOT INDICATED - Rads (name of study) RUQ US Radiology: Prelim report reviewed, See rad report CT A/P Radiology: Prelim report reviewed, See rad report (C) CTA chest Radiology: Prelim report reviewed, See rad report PD MEDICAL DECISION MAKING - ED course Complexity details: reviewed results, re-evaluated patient, considered differential, d/w patient ED course: Presents in obvious painful distress, c/o abdominal pain that has increased in intensity since onset 7 PM and spread to involve anterior chest as well as radiating to back. He has significant improvement with IV dilaudid, zofran, and NS. blood tests reveal mild leukocytosis and mildly elevated LFTs (bilirubin and transaminases). RUQ US shows gallstones and sludge but without findings to suggest cholecystitis. Similar findings on CT A/P. CTA chest also performed due to persistent tachycardia for most of his stay (even when asleep and comfortable he was having heart rates in 120s, ST on monitor). CTA chest is without evidence of PE. No apparent cause for symptoms is found, although biliary colic is possible. Results d/w patient, return precautions discussed I am prescribing a short course of short-acting opioid pain medication for this patient. 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 I have discussed that the opioids are for short term therapy only, and will not be refilled from the ED Departure - Departure Disposition: 01 Home, Self Care Clinical Impression: Abdominal pain Qualifiers: Abdominal location: generalized Qualified Code(s): R10.84 - Generalized abdominal pain Condition: Good Instructions: ED Abdominal Pain Unkn Cause Male Follow-Up: Tl Moise MD [Primary Care Provider] - Prescriptions: oxyCODONE [Roxicodone] 5 mg PO Q4-6H PRN #14 tablet PRN Reason: Pain Ondansetron Odt [Zofran Odt] 4 mg TL Q6H PRN #10 tablet PRN Reason: Nausea / Vomiting Comments: Your tests do not provide a clear cause for your symptoms. You do have gallstones, which is a possible explanation. Your blood tests are reassuring; as we discussed, there is a slight elevation in your liver function tests. Follow up with your primary care provider this week as scheduled. Further testing might be indicated and is at the discretion of your primary care provider. Prescriptions for oxycodone (pain medication) and ondansetron (anti-nausea medication) have been electronically submitted to [facility] pharmacy in [place]. I am prescribing a short course of narcotic pain medication for you. These are potentially dangerous and addictive medications that should be used carefully. These medications may constipate you. Take an eldz-yvs-hnlibrn stool softener (docusate) twice daily with plenty of water while taking these medications. If you go 24 hours without a bowel movement, take mnst-vsg-tomtpvl miralax, per package instructions. Do not drink or drive while taking these medications. If you received narcotic or sedating medications while in the emergency department, do not drive for 24 hours. Store this medication in a safe, secure place and out of reach of children. It is a violation of federal law to give or sell this medication to another person or to use in a manner other than prescribed. The ED will not refill narcotic prescriptions, including prescriptions lost or stolen. To dispose of unwanted medications: 1. [facility] [address] in [place] has a medication drop box. They accept prescription medications (in pill form) Thursday through Thursday 9:00 a.m. to 5:00 p.m. Discharge Date/Time: 04/02/21 06:42
[2021-04-02] MEDS ORDERED: HYDROmorphone 1 MG/ML CARPUJECT IVP STA (01:57)
[2021-04-02] MEDS ORDERED: SODIUM CHLORIDE 0.9% 1,000 ML IV STA ×2 (01:57→03:58)
[2021-04-02] MEDS ORDERED: ONDANSETRON 4 MG/2 ML VIAL IVP STA (01:57)
[2021-04-02 02:32] LABS: BASOPHILS # (AUTO) 0.1 10^3/uL (0.0-0.1); BASOPHILS % (AUTO) 0.8 %; EOSINOPHILS # (AUTO) 0.3 10^3/uL (0.0-0.7); HCT - HEMATOCRIT 43.8 % (42.0-52.0); HGB - HEMOGLOBIN 15.1 g/dL (14.0-18.0); LYMPHOCYTES # (AUTO) 2.1 10^3/uL (1.5-3.5); MEAN CORPUSCULAR HEMOGLOBIN 28.8 pg (27.0-31.0); MEAN CORPUSCULAR HGB CONC 34.5 g/dL (32.0-36.0); MEAN CORPUSCULAR VOLUME 83.6 fL (80.0-94.0); MEAN PLATELET VOLUME 11.3 fL (7.4-11.4); MONOCYTES # (AUTO) 0.7 10^3/uL (0.0-1.0); MONOCYTES % (AUTO) 4.8 %; NEUTROPHILS # (AUTO) 10.6 10^3/uL (1.5-6.6); NEUTROPHILS % (AUTO) 76.7 %; PLT - PLATELET COUNT 212 10^3/uL (130-450); RED BLOOD COUNT 5.24 10^6/uL (4.70-6.10); RED CELL DISTRIBUTION WIDTH 13.1 % (12.0-15.0); WHITE BLOOD COUNT 13.8 x10^3/uL (4.8-10.8)
[2021-04-02 02:42] LABS: ALBUMIN 4.9 g/dL (3.2-5.5); ALBUMIN/GLOBULIN RATIO 1.4 (1.0-2.2); BILIRUBIN,TOTAL 1.7 mg/dL (0.2-1.0); CREATININE 1.2 mg/dL (0.6-1.2); POTASSIUM 3.9 mmol/L (3.5-5.0); TOTAL PROTEIN 8.4 g/dL (6.7-8.2)
[2021-04-02] MEDS ORDERED: iohexoL-300 100 ML VIAL ONE ×2 (02:57→04:09)
[2021-04-02 03:18] LABS: BILIRUBIN,URINE NEGATIVE (NEGATIVE); CLARITY,URINE CLEAR (CLEAR); GLUCOSE, URINE (UA) 100 mg/dL (NEGATIVE); KETONES,URINE (UA) 15 mg/dL (NEGATIVE); LEUKOCYTE ESTERASE, URINE NEGATIVE (NEGATIVE); NITRITE,URINE NEGATIVE (NEGATIVE); OCCULT BLOOD,URINE NEGATIVE (NEGATIVE); PH,URINE 5.5 PH (5.0-7.5); PROTEIN,URINE NEGATIVE (NEGATIVE); UROBILINOGEN,URINE 1 (NORMAL) E.U./dL (NORMAL)
[2021-04-02] MEDS: iohexoL-300 100 ML VIAL IVP ONE ×4 (03:18→06:56)
[2021-04-02 06:42] VITALS: BP 133/85
--- NOTE | 2021-04-02 07:38 | Ultrasound Report ---
PROCEDURE: Abdomen Limited INDICATIONS: upper abdominal pain TECHNIQUE: Real-time scanning was performed of the abdominal and retroperitoneal organs, with image documentatio n. COMPARISON: 10/04/2019 FINDINGS: Liver: Liver is enlarged and demonstrates diffusely increased echotexture. 2 focal areas of relative hypoechogenicity noted near the humaira hepatis and adjacent to the gallbladder likely related to fatt y sparing. Otherwise, no focal intrahepatic mass lesions. Gallbladder: Gallbladder contains gallstones and gallbladder sludge. Gallbladder wall measures at the upper limits of normal at approximately 3 mm in thickness. No pericholecystic fluid. Negative sonogr aphic Garcia's. Most gallstones are mobile however, some appear to be nonmobile within the gallbladde r neck. Biliary ducts: Intrahepatic bile ducts are non-dilated. Extrahepatic bile duct caliber measures 7 m m. Normal is 6-7 mm or less in diameter, or 10 mm or less post-cholecystectomy. Pancreas: Visualized portions of the pancreas are sonographically normal. Spleen: Spleen is normal in size and homogeneous in echotexture. Kidneys: Right kidney is normal in size and echotexture. Right kidney measures 13.2 cm long. No hyd ronephrosis or nephrolithiasis. No solid masses. There is a 7 mm echogenic focus near the midpole o f the right kidney likely representing a nonobstructing stone versus cortical calcification. Miscellaneous: No free abdominal fluid. IMPRESSION: 1. Cholelithiasis without definitive sonographic evidence for acute cholecystitis. Recommend continue d clinical surveillance. 2. Mild hepatomegaly with hepatic steatosis. 3. Nonobstructing right renal calculus versus cortical calcification. No hydronephrosis. No significant discrepancy with initial interpretation by overnight radiologist. Reviewed by: Hank Ji MD on 04/02/2021 7:36 AM PST Approved by: Hank Ji MD on 04/02/2021 7:36 AM PST Station ID: [id number]
--- NOTE | 2021-04-02 07:50 | CT Report ---
PROCEDURE: ANGIO CHEST W/WO INDICATIONS: chest pain radiating to back, tachycardic CONTRAST: IV CONTRAST: Isovue 300 ml: 100 PO CONTRAST: *NO PO CONTRAST TECHNIQUE: After the administration of intravenous contrast, 2 mm axial images were acquired from the pulmonary apices to the posterior costophrenic angles during the arterial phase. In addition, 1 mm lung kernel and 5 mm soft tissue kernel reconstructions were performed. 3-dimensional coronal oblique maximum int ensity projection (MIP) reformats, 8 mm axial MIP, and 5 mm coronal and sagittal MPR reformats were t hen performed through the thorax. For radiation dose reduction, the following was used: automated exp osure control, adjustment of mA and/or kV according to patient size. COMPARISON: Chest x-ray 10/04/2019. FINDINGS: Image quality: Limited by suboptimal contrast opacification of the pulmonary arteries. Pulmonary arteries: Pulmonary arteries are normal in size, and demonstrate no intraluminal filling d efects to suggest central pulmonary embolism. Lungs and pleura: Lungs are clear. No pleural effusions or pneumothorax. Central and peripheral ai rways are patent. Mediastinum: Heart size is normal, without pericardial effusion. Atherosclerotic calcifications not ed in the aorta and the left coronary vasculature. No mediastinal or hilar adenopathy. Thoracic aort a is normal in caliber and enhancement. Esophagus is normal in caliber, without hiatal hernia. Bones and chest wall: No suspicious bony lesions. Ribs and thoracic spine appear intact throughout. Spine degenerative disc disease and facet arthropathy are noted. No axillary or supraclavicular maricarmen nopathy. The thyroid is normal in size and there are no incidental findings. Abdomen: Small duodenal diverticulum. Multiple small stones noted in the gallbladder. Diffuse fatty i nfiltration of the visualized liver. Visualized upper abdominal solid organs otherwise appear normal in the early arterial phase of enhancement. Mildly enlarged 1.2 and 1.1 cm periportal lymph nodes are noted which could be reactive or neoplastic. IMPRESSION: 1. Suboptimal contrast desiccation of pulmonary arteries. 2. No evidence of large central pulmonary embolus or aortic dissection. 3. Cholelithiasis. 4. Hepatic steatosis. Reviewed by: Izabela Aburto MD, PhD on 04/02/2021 7:49 AM PST Approved by: Izabela Aburto MD, PhD on 04/02/2021 7:49 AM PST Station ID: [id number]
--- NOTE | 2021-04-02 08:19 | CT Report ---
PROCEDURE: Abdomen/Pelvis W INDICATIONS: diffuse abdominal pain and tenderness CONTRAST: IV CONTRAST: Isovue 300 ml: 100 PO CONTRAST: *NO PO CONTRAST TECHNIQUE: After the administration of weight appropriate dose of intravenous contrast, 5 mm thick sections acqu ired from the diaphragms to the symphysis. 5 mm thick coronal and sagittal reformats were acquired. For radiation dose reduction, the following was used: automated exposure control, adjustment of mA and/or kV according to patient size. COMPARISON: 06/22/2017 and ultrasound from same day. FINDINGS: Image quality: Excellent. ABDOMEN: Lung bases: Mild bibasilar atelectasis. Heart size is normal. Scattered atherosclerotic calcificati ons of the coronary arteries. Solid organs: Liver and spleen are normal in size and enhancement. Diffuse hypoattenuation of the li tessa compatible with hepatic steatosis. Gallbladder contains layering hyperdensities likely related to sludge and/or small gallstones. This is predominantly seen near the gallbladder neck. No CT evidence for pericholecystic stranding. Biliary system is non dilated. Pancreas enhances normally. No adre nal nodules. Kidneys demonstrate normal size and enhancement, without hydronephrosis. Mild right julien al cortical scarring with 6 mm cortical calcification which may represent a nonobstructing calculus v ersus cortical calcification. Peritoneum and bowel: Bowel loops demonstrate normal wall thickness and caliber. Appendix appears n ormal. No free fluid or air. Small duodenal diverticulum noted near the head of the pancreas. Nodes and vessels: No retroperitoneal or mesenteric adenopathy by size criteria. Aorta and inferior vena cava are normal in size. Atherosclerotic calcifications of the abdominal aorta and iliac vessel s. Miscellaneous: No ventral hernias. PELVIS: Genitourinary: Urinary bladder wall thickness is normal. Miscellaneous: No inguinal hernias or adenopathy. Penile prosthesis is again noted. Status post pro statectomy. Bones: No suspicious bony lesions. No acute vertebral body compression fractures. Multilevel spondy losis of the imaged spine. IMPRESSION: 1. CT abdomen and pelvis without acute abnormalities. 2. Cholelithiasis without CT evidence to suggest acute cholecystitis. 3. Hepatic steatosis. 4. Status post prostatectomy. 5. A 6 mm cortical calcification which may represent a nonobstructing calculus versus cortical calcif ication. 6. Coronary and aortic atherosclerosis. No significant discrepancy with initial interpretation by overnight radiologist. Reviewed by: Hank Ji MD on 04/02/2021 8:18 AM PST Approved by: Hank Ji MD on 04/02/2021 8:18 AM PST Station ID: [id number]
== END 2021-04-02 06:42 | disposition home or self-care (01) ==
LOC: ED 00:47
DX: R10.84 Generalized abdominal pain (principal); R00.0 Tachycardia, unspecified; K80.20 Calculus of gallbladder without cholecystitis without obstruction
CPT/HCPCS: 36415; 71275; 74177; 76705; 80053; 81003; 83690; 84484; 85025; 93005; 96361; 96374; 99284; J1170; Q9967; 81001; 87086

== ENCOUNTER 2021-05-29 07:07 | Day surgery (SDC) | payer BC, MEDICARE ==
[2021-05-29] MEDS ORDERED: LACTATED RINGERS 1,000 ML IV ONE (07:10)
[2021-05-29] MEDS ORDERED: PROPOFOL 500 MG/50 ML 500 MG/50 ML VIAL ONE (07:45)
--- NOTE | 2021-05-29 07:47 | ANESTHESIA ---
Pre-Anesthesia VS, & Labs - Diagnosis screening - Procedure colonoscopy Vital Signs: Temp Pulse Resp BP Pulse Ox 36.6 C 78 16 146/88 H 96 05/29/21 07:16 05/29/21 07:16 05/29/21 07:16 05/29/21 07:16 05/29/21 07:16 Height: 6 ft Weight (kg): 99 kg Body Mass Index: 29.6 BMI Classification: Overweight - NPO >8 hours - Lab Results Current Lab Results: Laboratory Tests 05/29/21 07:35: POC Whole Bld Glucose 103 H Lab results reviewed: Yes Home Medications and Allergies Metformin HCl [Glucophage] 1,000 mg PO BID 05/01/20 Olmesartan Medoxomil [Benicar] 20 mg PO DAILY 05/01/20 Rosuvastatin Calcium [Crestor] 20 mg PO DAILY 05/01/20 Allergies/Adverse Reactions: Allergies Allergy/AdvReac Type Severity Reaction Status Date / Time No Known Drug Allergies Allergy Verified 03/03/18 18:22 Anes History & Medical History - Anesthetic History Anesthesia Complications: reports: No previous complications Family history of Anesthesia Complications: Denies Family history of Malignant Hyperthermia: Denies - Medical History Cardiovascular: reports: None Pulmonary: reports: None Gastrointestinal: reports: None Urinary: reports: Other Neuro: reports: None Musculoskeletal: reports: Osteoarthritis Endocrine/Autoimmune: reports: Type 2 diabetes Blood Disorders: reports: None Skin: reports: None Smoking Status: Never smoker - Surgical History General: reports: Colonoscopy Eyes Ears Nose Throat (EENT): reports: Tonsil/Adenoidectomy Urologic: reports: Prostatic surgery Exam General: Alert, Oriented x3, Cooperative, No acute distress Dental: WNL Mouth Openin Fingerbreadth Neck Mobility: Normal Mallampati classification: II Plan Anesthesia Type: General, Total IV Consent for Procedure(s) Verified and Reviewed: Yes Code Status: Attempt Resuscitation ASA classification: 3-Severe systemic disease Is this case an emergency?: No
[2021-05-29] MEDS ORDERED: PROPOFOL 200 MG/20 ML VIAL IVP ONE (08:45)
[2021-05-29] MEDS ORDERED: LACTATED RINGERS 500 ML IV ONE (09:01)
[2021-05-29 09:16] VITALS: BP 98/65
--- NOTE | 2021-05-29 12:57 | ANESTHESIA POST OP EVALUATION ---
Anesthesia Post Eval - Post Anesthesia Eval Vitals: Last Vital Signs Temp 36 C L 05/29/21 09:12 Pulse 72 05/29/21 09:12 Resp 16 05/29/21 09:12 BP 98/65 05/29/21 09:12 Pulse Ox 98 05/29/21 09:12 CV Function Including HR & BP: Stable Pain Control: Satisfactory Nausea & Vomiting: Negative Mental Status: Baseline Respiratory Status: Airway Patent Hydration Status: Satisfactory Anesthesia Complications: None
== END 2021-05-29 07:08 | disposition home or self-care (01) ==
LOC: SDS 07:07
PROVIDERS: ATTEND Surgery
PROC: 0DBL8ZZ Excision of Transverse Colon, Via Natural or Artificial Opening Endoscopic (ICD-10-PCS; 2021-05-29)
PROC: 0DBN8ZZ Excision of Sigmoid Colon, Via Natural or Artificial Opening Endoscopic (ICD-10-PCS; principal; 2021-05-29 08:15)
DX: Z12.11 Encounter for screening for malignant neoplasm of colon (principal); D12.3 Benign neoplasm of transverse colon; D12.5 Benign neoplasm of sigmoid colon; K64.8 Other hemorrhoids; E11.9 Type 2 diabetes mellitus without complications; Z79.84 Long term (current) use of oral hypoglycemic drugs
CPT/HCPCS: 45380; 45385; J7120

== ENCOUNTER 2022-01-02 19:02 | Emergency (ER) | payer BC, MEDICARE ==
[2022-01-02 19:31] LABS: BASOPHILS % (AUTO) 0.5 %; EOSINOPHILS # (AUTO) 0.2 10^3/uL (0.0-0.7); EOSINOPHILS % (AUTO) 2.8 %; HGB - HEMOGLOBIN 14.1 g/dL (14.0-18.0); LYMPHOCYTES # (AUTO) 0.6 10^3/uL (1.5-3.5); LYMPHOCYTES % (AUTO) 7.9 %; MEAN CORPUSCULAR HGB CONC 34.4 g/dL (32.0-36.0); MEAN CORPUSCULAR VOLUME 84.2 fL (80.0-94.0); MEAN PLATELET VOLUME 11.3 fL (7.4-11.4); MONOCYTES # (AUTO) 0.5 10^3/uL (0.0-1.0); MONOCYTES % (AUTO) 6.1 %; NEUTROPHILS # (AUTO) 6.2 10^3/uL (1.5-6.6); NEUTROPHILS % (AUTO) 82.2 %; PLT - PLATELET COUNT 158 10^3/uL (130-450); RED BLOOD COUNT 4.87 10^6/uL (4.70-6.10); RED CELL DISTRIBUTION WIDTH 13.1 % (12.0-15.0); WHITE BLOOD COUNT 7.6 x10^3/uL (4.8-10.8)
[2022-01-02 20:02] LABS: ALBUMIN 4.4 g/dL (3.2-5.5); ALBUMIN/GLOBULIN RATIO 1.2 (1.0-2.2); BILIRUBIN,TOTAL 3.2 mg/dL (0.2-1.0); CALCIUM 9.4 mg/dL (8.5-10.3); CREATININE 1.1 mg/dL (0.6-1.2); POTASSIUM 3.6 mmol/L (3.5-5.0); TOTAL PROTEIN 8.1 g/dL (6.7-8.2)
[2022-01-02] MEDS ORDERED: ONDANSETRON 4 MG/2 ML VIAL IVP STA (20:05)
[2022-01-02] MEDS ORDERED: HYDROmorphone 1 MG/ML CARPUJECT IVP STA ×2 (20:05→22:23)
--- NOTE | 2022-01-02 20:05 | ED Physician Documentation ---
PD HPI ABD PAIN - Stated complaint Stated Complaint: CHEST PX - Chief complaint Chief Complaint: Cardiac - History obtained from History obtained from: Patient - Additional information Additional information: 71-year-old gentleman presents for evaluation of epigastric pain radiating to the back and chest starting suddenly about 5 PM tonight associated with vomiting. He says he has had similar issues in the past which were attributed to kidney stones, my suspicion is that he is confused and he needs gallstones since he had a CAT scan ordered by the lauded Dr. Dyllan Cabrera here in March of this year showing cholelithiasis. This severe pain this evening started a few hours after eating a late lunch. He is vomiting with it. It hurts to take a deep breath but he is not short of breath. Review of Systems Ten Systems: 10 systems reviewed and negative Constitutional: denies: Fever, Chills Cardiac: reports: Chest pain / pressure. denies: Palpitations Respiratory: denies: Dyspnea, Cough PD PAST MEDICAL HISTORY - Past Medical History Past Medical History: Yes Cardiovascular: None Respiratory: None Neuro: None Endocrine/Autoimmune: Type 2 diabetes GI: None : Other HEENT: Chronic vision loss Psych: None Musculoskeletal: Osteoarthritis Derm: None - Past Surgical History Past Surgical History: Yes General: Colonoscopy HEENT: Tonsil/Adenoidectomy - Present Medications Home Medications: Ambulatory Orders Medication Instructions Recorded Confirmed Metformin HCl [Glucophage] 1,000 mg PO BID 05/01/20 05/28/21 Olmesartan Medoxomil [Benicar] 20 mg PO DAILY 05/01/20 05/28/21 Rosuvastatin Calcium [Crestor] 20 mg PO DAILY 05/01/20 05/28/21 - Allergies Allergies/Adverse Reactions: Allergies Allergy/AdvReac Type Severity Reaction Status Date / Time No Known Drug Allergies Allergy Verified 03/03/18 18:22 - Social History Does the pt smoke?: No Smoking Status: Never smoker Does the pt drink ETOH?: No Does the pt have substance abuse?: No - Immunizations Immunizations are current?: Yes - POLST Patient has POLST: No PD ED PE NORMAL - Vitals Vital signs reviewed: Yes - General General: Alert and oriented X 3 (He appears uncomfortable and is holding an emesis bag) - HEENT HEENT: PERRL, EOMI - Neck Neck: Supple, no meningeal sign, No bony TTP - Cardiac Cardiac: RRR, No murmur - Respiratory Respiratory: No respiratory distress, Clear bilaterally - Abdomen Abdomen: Other (Exquisitely tender in the right upper quadrant with positive Garcia sign.) - Back Back: No CVA TTP, No spinal TTP - Derm Derm: Normal color, Warm and dry - Extremities Extremities: No edema, No calf tenderness / cord, Other (Bounding pedal and radial pulses bilaterally) - Neuro Neuro: Alert and oriented X 3, Normal speech Results - Vitals Vitals: Vital Signs - 24 hr 01/02/22 01/02/22 19:05 21:09 Temperature 36.7 C Heart Rate 108 H 103 H Respiratory 20 23 Rate Blood Pressure 176/97 H 172/92 H O2 Saturation 97 94 Oxygen O2 Source Room air - EKG (time done) 1907. Rate: Rate (enter#) (106) Rhythm: Sinus tachycardia (w pac), LAE [place]: Normal Intervals: Normal SC QRS: Normal Ischemia: Normal ST segments 1931 Rate: Rate (enter#) (105) Rhythm: Sinus tachycardia [place]: Normal Intervals: Normal [place] QRS: Normal Ischemia: Normal ST segments - Labs Labs: Laboratory Tests 01/02/22 01/02/22 01/02/22 19:27 19:27 19:27 WBC 7.6 RBC 4.87 Hgb 14.1 Hct 41.0 L MCV 84.2 MCH 29.0 MCHC 34.4 RDW 13.1 Plt Count 158 MPV 11.3 Neut # (Auto) 6.2 Lymph # (Auto) 0.6 L [place] # (Auto) 0.5 Eos # (Auto) 0.2 Baso # (Auto) 0.0 Absolute Nucleated RBC 0.00 Nucleated RBC % 0.0 Sodium 135 Potassium 3.6 Chloride 95 L Carbon Dioxide 28 Anion Gap 12.0 BUN 22 H Creatinine 1.1 Estimated GFR (MDRD) 66 L Glucose 286 H Calcium 9.4 Total Bilirubin 3.2 H AST 133 H ALT 317 H Alkaline Phosphatase 120 Troponin I High Sens 5.1 Total Protein 8.1 Albumin 4.4 Globulin 3.7 Albumin/Globulin Ratio 1.2 Lipase 1980 H PD MEDICAL DECISION MAKING - ED course ED course: 71-year-old gentleman presents with abdominal and chest pain which based on exam is likely of a biliary etiology which is further confirmed by nonischemic EKG and negative troponin but a mild obstructive pattern of his liver enzymes and evidence of probably gallstone pancreatitis with an elevated lipase. His pain was not too hard to control here and he was comfortable after a single dose of IV narcotics. Ultrasound showing gallstones and a mildly dilated common bile duct. I discussed the case by phone with Dr. Pryor, our on-call surgeon who feels he can be admitted here. He does not feel there is a clear need for transfer given the obstructive pattern and his liver enzymes can likely be trended with bowel rest. Defers to the hospitalist for admission but he will consult. I put in a telehealth consultation request at 10:[address] Frazier, telehospitalist at approximately 10:27 PM. She was worried about the elevation in liver enzymes and borderline dilatation of the common bile duct. Since I had already discussed this with the surgeon I encouraged her to contact him directly. I gave her his phone number. Subsequent to this discussion, Dr. Frazier refused to admit. I will order repeat labs for the morning and will reevaluate then. Care to Dr. Cabrera at shift change. Departure - Departure Disposition: 66 [facility] DC/Xfer Clinical Impression: Gallstone pancreatitis Condition: Stable
[2022-01-02] MEDS ORDERED: iohexoL-300 100 ML VIAL ONE (21:45)
--- NOTE | 2022-01-02 21:48 | XRAY Report ---
PROCEDURE: Chest 1 View X-Ray INDICATIONS: Chest pain TECHNIQUE: One view of the chest was acquired. COMPARISON: 10/14/2019 FINDINGS: Surgical changes and devices: None. Lungs and pleura: No pleural effusions or pneumothorax. Lungs are clear without acute consolidation . Mediastinum: Mediastinal contours appear normal. Heart size is normal. Bones and chest wall: There are multiple healed right posterior rib fractures. No suspicious bony les ions. Overlying soft tissues appear unremarkable. IMPRESSION: 1. No acute cardiopulmonary disease. Reviewed by: Guido Jacinto MD on 01/02/2022 9:46 PM PDT Approved by: Guido Jacinto MD on 01/02/2022 9:46 PM PDT Station ID: [id number]
--- NOTE | 2022-01-02 21:58 | Ultrasound Report ---
PROCEDURE: Abdomen Limited INDICATIONS: abd pain, pancreatitis, elev liver enz TECHNIQUE: Real-time focused scanning was performed of the abdomen, with image documentation. COMPARISON: Ultrasound abdomen 04/02/2021. CT abdomen pelvis 04/02/2021. FINDINGS: The liver appears enlarged and demonstrates diffusely increased hepatic echogenicity with coarse sono graphic echotexture consistent with fatty infiltration. The gallbladder is distended and demonstrates multiple echogenic shadowing gallstones. There is borde rline gallbladder wall thickening measuring approximately 0.3 cm. No pericholecystic fluid There is mild extra hepatic biliary ductal dilatation with the common bile duct measuring up to 0.8 c m where visualized. No discrete common duct stone identified sonographically. No definite intrahepati c biliary ductal dilatation but evaluation is limited due to increased hepatic echogenicity. The pancreas was not well seen sonographically due to bowel gas. Right kidney measures 13 cm. No hydronephrosis. There is an echogenic focus within the right kidney m easuring up to 0.5 cm. This corresponds to calcification seen on the prior CT. IMPRESSION: 1. Distention of the gallbladder with cholelithiasis and borderline gallbladder wall thickening but n o definite pericholecystic fluid. The findings are equivocal but may reflect developing cholecystitis . 2. Mild biliary ductal dilatation, similar to slightly increased from the prior study. Recommend cruz elation clinically including with laboratory values for possible biliary obstruction. 3. Right renal calcification consistent with a nonobstructing stone or dystrophic calcification. 4. Increased hepatic echogenicity compatible with steatosis. Reviewed by: Guido Jacinto MD on 01/02/2022 9:56 PM PDT Approved by: Guido Jacinto MD on 01/02/2022 9:56 PM PDT Station ID: [id number]
[2022-01-02] MEDS ORDERED: iohexoL-300 100 ML VIAL IVP ONE (22:11)
[2022-01-02] MEDS ORDERED: SODIUM CHLORIDE 0.9% 1,000 ML IV STA (22:13)
--- NOTE | 2022-01-02 22:57 | CT Report ---
PROCEDURE: Abdomen/Pelvis W INDICATIONS: IV only, abd pain, pancreatitis, elev liver enz CONTRAST: IV CONTRAST: Isovue 300 ml: 100 PO CONTRAST: *NO PO CONTRAST TECHNIQUE: After the administration of intravenous contrast, 5 mm thick sections acquired from the diaphragms to the symphysis. 5 mm thick coronal and sagittal reformats were acquired. For radiation dose reducti on, the following was used: automated exposure control, adjustment of mA and/or kV according to esther ent size. COMPARISON: CT abdomen pelvis 04/02/2021, 06/22/2017. Ultrasound abdomen 01/02/2022. FINDINGS: Image quality: Excellent. Lung bases:There is atelectasis and scarring in the lung bases. Heart: Heart is normal in size. ABDOMEN: Liver:There is diffuse hypoattenuation of the liver consistent with fatty infiltration. Gallbladder:There are dependent filling defects in the region of the gallbladder neck suggestive of noncalcified stones or biliary sludge. No gallbladder wall thickening or pericholecystic fluid. Biliary ducts:The common bile duct is at upper limits of normal measuring up to approximately 0.7 cm . Pancreas:No peripancreatic fat stranding or fluid collections. No pancreatic duct dilatation. No dis crete pancreatic mass identified. Spleen: Normal in size. Adrenal Glands: No adrenal nodules. Kidneys and Ureters: No hydronephrosis.There is a calcification within the right kidney measuring u p to 0.4 cm redemonstrated. Stomach and Bowel: Stomach, small bowel loops, and colon are normal in caliber and wall thickness. T he appendix is normal in appearance. There is colonic diverticulosis without acute diverticulitis. Peritoneum: No abnormal intraperitoneal fluid. No free air. Ventral Wall: No hernia. Abdominal Nodes: No retroperitoneal or mesenteric adenopathy by size criteria. Vessels: Aorta and inferior vena cava are normal in size. PELVIS: Pelvic Organs: Unremarkable. Bladder: Unremarkable. Pelvic Nodes: No enlarged lymph nodes. Miscellaneous: No inguinal hernias are seen.A penile prosthesis is redemonstrated. Bones: Visualized osseous structures demonstrate no suspicious focal lesions. IMPRESSION: 1. No CT evidence of acute pancreatitis. No evidence of necrosis or acute peripancreatic fluid collec tions. 2. Filling defects within the gallbladder consistent with gallstones as seen on concurrent ultrasound . No CT evidence of acute cholecystitis. 3. No definite biliary ductal dilatation or calcified common duct stones. Common bile duct at the upp er limits of normal in caliber. 4. No evidence of appendicitis. 5. Clonic diverticulosis without acute diverticulitis. Reviewed by: Guido Jacinto MD on 01/02/2022 10:56 PM PDT Approved by: Guido Jacinto MD on 01/02/2022 10:56 PM PDT Station ID: [id number]
[2022-01-03] MEDS: D5.45NS W/20 MEQ KCL 1,000 ML IV SCH ×2 (00:20→09:38)
[2022-01-03 00:31] LABS: B. PARAPERTUSSIS- RESP PCR PAN NOT DETECTED; B. PERTUSSIS- RESP PCR PANEL NOT DETECTED; C. PNEUMONIAE- RESP PCR PANEL NOT DETECTED; CORONAVIRUS 229E-RESP PCR NOT DETECTED; CORONAVIRUS HKU1-RESP PCR NOT DETECTED; CORONAVIRUS NL63-RESP PCR NOT DETECTED; CORONAVIRUS OC43-RESP PCR NOT DETECTED; HUMAN METAPNEUMOVIRUS NOT DETECTED; INFLUENZA A- RESP PCR PANEL NOT DETECTED; INFLUENZA B - RESP PCR PANEL NOT DETECTED; M. PNEUMONIAE- RESP PCR PANEL NOT DETECTED; PARAINFLUENZA VIRUS 1 NOT DETECTED; PARAINFLUENZA VIRUS 2 NOT DETECTED; PARAINFLUENZA VIRUS 3 NOT DETECTED; PARAINFLUENZA VIRUS 4 NOT DETECTED; RHINOVIRUS/ENTEROVIRUS NOT DETECTED; RSV- RESP PCR PANEL NOT DETECTED; SARS-CoV-2 -RESP PCR PANEL NOT DETECTED
[2022-01-03] MEDS ORDERED: HYDROmorphone 1 MG/ML CARPUJECT IVP STA (04:20)
[2022-01-03 05:29] LABS: BASOPHILS % (AUTO) 0.6 %; EOSINOPHILS # (AUTO) 0.1 10^3/uL (0.0-0.7); EOSINOPHILS % (AUTO) 1.7 %; HCT - HEMATOCRIT 34.6 % (42.0-52.0); HGB - HEMOGLOBIN 11.8 g/dL (14.0-18.0); LYMPHOCYTES # (AUTO) 0.7 10^3/uL (1.5-3.5); LYMPHOCYTES % (AUTO) 12.6 %; MEAN CORPUSCULAR HEMOGLOBIN 29.1 pg (27.0-31.0); MEAN CORPUSCULAR HGB CONC 34.1 g/dL (32.0-36.0); MEAN CORPUSCULAR VOLUME 85.4 fL (80.0-94.0); MEAN PLATELET VOLUME 10.6 fL (7.4-11.4); MONOCYTES # (AUTO) 0.6 10^3/uL (0.0-1.0); MONOCYTES % (AUTO) 11.1 %; NEUTROPHILS # (AUTO) 3.9 10^3/uL (1.5-6.6); NEUTROPHILS % (AUTO) 73.6 %; PLT - PLATELET COUNT 124 10^3/uL (130-450); RED BLOOD COUNT 4.05 10^6/uL (4.70-6.10); RED CELL DISTRIBUTION WIDTH 13.3 % (12.0-15.0); WHITE BLOOD COUNT 5.3 x10^3/uL (4.8-10.8)
--- NOTE | 2022-01-03 08:14 | CONSULTATION NOTE ---
Referring Provider Consult Date: 01/03/22 Chief Complaint - Chief Complaint Chief Complaint: epigastric abdominal pain History of Present Illness - History Obtained From Records Reviewed: yes History obtained from: pt Exam Limitations: none - History of Present Illness HPI Comment/Other: seen and evaluated last pm in the ED for epigastric pain. he had a similar episode 1 year ago. pain is much improved this am. He notice dark orange urine last pm. still dark orange this am. work up mild gallstone pancreatitis imaging reviewed. numerous small stones. no significant pancreatitis on ct lfts this am pending History - Past Medical History Cardiovascular: reports: None Respiratory: reports: None Neuro: reports: None Endocrine/Autoimmune: reports: Type 2 diabetes GI: reports: None : reports: Other HEENT: reports: Chronic vision loss Psych: reports: None Musculoskeletal: reports: Osteoarthritis Derm: reports: None MRSA Hx?: No - Past Surgical History General: reports: Colonoscopy HEENT: reports: Tonsil/Adenoidectomy - POLST Patient has POLST: No Meds/Allgy - Home Medications Home Medications: Ambulatory Orders Medication Instructions Recorded Confirmed Metformin HCl [Glucophage] 1,000 mg PO BID 05/01/20 01/03/22 Olmesartan Medoxomil [Benicar] 20 mg PO DAILY 05/01/20 01/03/22 Rosuvastatin Calcium [Crestor] 20 mg PO DAILY 05/01/20 01/03/22 - Allergies Allergies/Adverse Reactions: Allergies Allergy/AdvReac Type Severity Reaction Status Date / Time No Known Drug Allergies Allergy Verified 03/03/18 18:22 Review of Systems - Other Findings Other Findings: 10 pt ros as above otherwise unremarkable Exam - Vital Signs Reviewed Vital Signs: Yes Vital Signs: Vital Signs x48h Temp Pulse Resp BP Pulse Ox 01/03/22 08:00 82 15 131/85 H 94 01/03/22 07:30 72 15 117/79 92 01/03/22 06:48 36.1 C L 77 17 103/49 L 100 01/03/22 06:43 36.0 C L 78 18 138/77 H 99 01/03/22 06:30 71 14 138/77 H 93 01/03/22 06:17 80 17 128/82 H 95 01/03/22 05:15 74 15 153/83 H 94 01/03/22 04:39 36.9 C 75 14 143/88 H 95 01/03/22 04:05 37.0 C 69 15 99/58 L 97 01/03/22 03:30 77 77 H 103/53 L 98 01/03/22 03:00 83 17 133/81 H 93 01/03/22 02:30 82 15 122/74 93 01/03/22 02:00 85 16 115/73 90 L 01/03/22 01:34 36.9 C 81 16 127/73 94 01/03/22 00:27 37.8 C 89 17 130/75 94 - Physical Exam General Appearance: positive: No acute distress Eyes Bilateral: positive: PERRL, EOMI, No scleral icterus ENT: positive: No signs of dehydration Neck: positive: No JVD, Trachea midline Respiratory: positive: No respiratory distress Cardiovascular: positive: Regular rate & rhythm Abdomen: positive: Non-tender, No distention Neurologic/Psychiatric: positive: Oriented x3 Conclusion and Plan - Lab Results Laboratory Results 01/03/22 05:21: WBC 5.3, RBC 4.05 L, Hgb 11.8 L, Hct 34.6 L, MCV 85.4, MCH 29.1, MCHC 34.1, RDW 13.3, Plt Count 124 L, MPV 10.6, Neut # (Auto) 3.9, Lymph # (Auto) 0.7 L, Borden # (Auto) 0.6, Eos # (Auto) 0.1, Baso # (Auto) 0.0, Absolute Nucleated RBC 0.00, Nucleated RBC % 0.0 01/02/22 22:43: Nasal Adenovirus (PCR) NOT DETECTED, Nasal B. parapertussis DNA (PCR) NOT DETECTED, Nasal Coronavir 229E PCR NOT DETECTED, Nasal Coronavir HKU1 PCR NOT DETECTED, Nasal Coronavir NL63 PCR NOT DETECTED, Nasal Coronavir OC43 PCR NOT DETECTED, Nasal Enterovir/Rhinovir PCR NOT DETECTED, Nasal Influenza B PCR NOT DETECTED, Nasal Influenza A PCR NOT DETECTED, Nasal Parainfluen 1 PCR NOT DETECTED, Nasal Parainfluen 2 PCR NOT DETECTED, Nasal Parainfluen 3 PCR NOT DETECTED, Nasal Parainfluen 4 PCR NOT DETECTED, Nasal RSV (PCR) NOT DETECTED, Nasal B.pertussis DNA PCR NOT DETECTED, Nasal C.pneumoniae (PCR) NOT DETECTED, Edwardo Human Metapneumo PCR NOT DETECTED, Nasal M.pneumoniae (PCR) NOT DETECTED, Nasal SARS-CoV-2 (PCR) NOT DETECTED 01/02/22 19:27: Troponin I High Sens 5.1 01/02/22 19:27: Sodium 135, Potassium 3.6, Chloride 95 L, Carbon Dioxide 28, Anion Gap 12.0, BUN 22 H, Creatinine 1.1, Estimated GFR (MDRD) 66 L, Glucose 286 H, Calcium 9.4, Total Bilirubin 3.2 H, AST 133 H, ALT 317 H, Alkaline Phosphatase 120, Total Protein 8.1, Albumin 4.4, Globulin 3.7, Albumin/Globulin Ratio 1.2, Lipase 1980 H 01/02/22 19:27: WBC 7.6, RBC 4.87, Hgb 14.1, Hct 41.0 L, MCV 84.2, MCH 29.0, MCHC 34.4, RDW 13.1, Plt Count 158, MPV 11.3, Neut # (Auto) 6.2, Lymph # (Auto) 0.6 L, Borden # (Auto) 0.5, Eos # (Auto) 0.2, Baso # (Auto) 0.0, Absolute Nucleated RBC 0.00, Nucleated RBC % 0.0 - Diagnostic Imaging Results Diagnostic Imaging Results: positive: Final report reviewed (mild gallstone pancreatitis), Read independently - Diagnosis Diagnosis: gallstone pancreatitis - Consultation Note Consultation Note: he feels improved this am. he may still have a cbd stone. this is discussed. plan repeat lfts. if more elevated recommend transfer to facility which offers ercp. if stable to improved plan admit surgery observation. problem and need for elective surgery to prevent recurrence discussed
[2022-01-03 08:23] LABS: ALBUMIN 3.6 g/dL (3.2-5.5); ALBUMIN/GLOBULIN RATIO 1.2 (1.0-2.2); BILIRUBIN,TOTAL 3.7 mg/dL (0.2-1.0); CALCIUM 8.6 mg/dL (8.5-10.3); CREATININE 0.9 mg/dL (0.6-1.2); POTASSIUM 3.9 mmol/L (3.5-5.0); TOTAL PROTEIN 6.5 g/dL (6.7-8.2)
[2022-01-03 19:14] VITALS: BP 152/94
--- NOTE | 2022-01-03 19:16 | ED Physician Documentation ---
ED Addendum - Addendum Addendum: 01/03/22 19:16 He has been pain-free last since last night, in fact last night the only pain medicine he needed was for a headache because of poor sleep. He has been eating and drinking well. He very much request discharge. His abdomen is soft and nontender. We discussed the reason he was boarding, waiting for facility capable of ERCP or MRCP and there is no likely disposition insight. Clinically he is not obstructed now so he will follow-up with his surgeon. He was given close return precautions.
== END 2022-01-03 19:25 | disposition home or self-care (01) ==
LOC: ED 19:02
DX: K85.10 Biliary acute pancreatitis without necrosis or infection (principal); E11.9 Type 2 diabetes mellitus without complications; Z79.84 Long term (current) use of oral hypoglycemic drugs
CPT/HCPCS: 36415; 71045; 74177; 76705; 80053; 83690; 84484; 85025; 87633; 93005; 96374; 96375; 96376; 99284; J1170; Q9967

== ENCOUNTER 2022-01-07 11:20 | Day surgery (SDC) | payer BC, MEDICARE ==
[~2022-01-07 11:20] MED LIST changes: +CEFAZOLIN 2G/50ML 0.9% NS 2 GM/50 ML BAG IV ONE; -ceFAZolin 2 GM/50 ML 2 GM/50 ML BAG IV ONE
[2022-01-07] MEDS ORDERED: LACTATED RINGERS 1,000 ML IV ONE ×2 (12:05→15:16)
--- NOTE | 2022-01-07 12:09 | ANESTHESIA ---
Pre-Anesthesia VS, & Labs - Diagnosis gallstone pancreatitis type 2 - Procedure Lap Aishwarya with IOC Vital Signs: Temp Pulse Resp BP Pulse Ox O2 Flow Rate 36.0 C L 74 18 155/90 H 98 01/07/22 11:28 01/07/22 11:28 01/07/22 11:28 01/07/22 11:28 01/07/22 11:28 Height: 6 ft Weight (kg): 99.2 kg Body Mass Index: 29.6 BMI Classification: Overweight - NPO >8 hours Home Medications and Allergies Metformin HCl [Glucophage] 1,000 mg PO BID 05/01/20 Olmesartan Medoxomil [Benicar] 20 mg PO DAILY 05/01/20 Rosuvastatin Calcium [Crestor] 20 mg PO DAILY 05/01/20 Allergies/Adverse Reactions: Allergies Allergy/AdvReac Type Severity Reaction Status Date / Time No Known Drug Allergies Allergy Verified 03/03/18 18:22 Anes History & Medical History - Anesthetic History Anesthesia Complications: reports: No previous complications - Medical History Cardiovascular: reports: None Pulmonary: reports: None Gastrointestinal: reports: None Urinary: reports: Other (s/p prostetectomy) Neuro: reports: None Musculoskeletal: reports: Osteoarthritis Endocrine/Autoimmune: reports: Type 2 diabetes Blood Disorders: reports: None Skin: reports: None Smoking Status: Never smoker Psychosocial: reports: No issues indicated History of Cancer?: Yes (prostate) - Surgical History General: reports: Colonoscopy Eyes Ears Nose Throat (EENT): reports: Tonsil/Adenoidectomy Urologic: reports: Prostatic surgery Exam General: Alert, Oriented x3, Cooperative, No acute distress Dental: WNL Mouth Openin Fingerbreadth Neck Mobility: Normal Mallampati classification: II Thyromental Distance: 4-6 cm Mental/Cognitive Status: Alert/Oriented X3, Normal for patient Plan Anesthesia Type: General Consent for Procedure(s) Verified and Reviewed: Yes Code Status: Attempt Resuscitation ASA classification: 2-Mild systemic disease Is this case an emergency?: No
[2022-01-07] MEDS ORDERED: ROCURONIUM 50 MG/5 ML VIAL ONE ×2 (12:12→14:03)
[2022-01-07] MEDS ORDERED: PROPOFOL 200 MG/20 ML VIAL IVP ONE (12:12)
[2022-01-07] MEDS ORDERED: fentaNYL 100 MCG/2 ML VIAL ONE ×2 (12:12→13:15)
[2022-01-07] MEDS ORDERED: MIDAZOLAM 2 MG/2 ML VIAL ONE (12:12)
[2022-01-07] MEDS ORDERED: NALOXONE 0.4 MG/ML VIAL IVP PRN (12:20)
[2022-01-07] MEDS ORDERED: fentaNYL 100 MCG/2 ML VIAL IVP PRN (12:20)
[2022-01-07] MEDS ORDERED: MORPHINE 2 MG/ML CARPUJECT IVP PRN (12:20)
[2022-01-07] MEDS ORDERED: ONDANSETRON 4 MG/2 ML VIAL IVP PRN ×2 (12:20→14:39)
[2022-01-07] MEDS ORDERED: HYDROmorphone 0.5 MG/0.5 ML SYRINGE IVP PRN ×2 (12:20→14:39)
[2022-01-07] MEDS ORDERED: ATROPINE ABBOJECT 1 MG/10 ML SYRINGE IVP PRN (12:20)
[2022-01-07] MEDS ORDERED: BUPIVACAINE 0.5% PF 30 ML VIAL ONE (12:26)
[2022-01-07] MEDS ORDERED: iohexoL-300 100 ML VIAL ONE (12:31)
[2022-01-07] MEDS ORDERED: LACTATED RINGERS 1,000 ML IV SCH (13:00)
[2022-01-07] MEDS ORDERED: BUPIVACAINE 0.5% PF 30 ML VIAL INFIL ONE (13:00)
[2022-01-07] MEDS ORDERED: GLYCOPYRROLATE 1 MG/5 ML VIAL ONE (13:21)
[2022-01-07] MEDS ORDERED: SUGAMMADEX 200 MG/2 ML VIAL IVP ONE (14:31)
[2022-01-07] MEDS ORDERED: HYDROmorphone 1 MG/ML CARPUJECT ONE (14:32)
[2022-01-07] MEDS ORDERED: ONDANSETRON 4 MG/2 ML VIAL ONE (14:32)
[2022-01-07] MEDS ORDERED: HYDROcod/ACETAM 5/325 MG TABLET PO PRN (14:39)
--- NOTE | 2022-01-07 14:43 | OPERATIVE REPORT ---
Operative Report - General Procedure Date: 01/07/22 Planned Procedure: Laparoscopic cholecystectomy with planned intraoperative cholangiography Pre-Op Diagnosis: Cholelithiasis, choledocholithiasis, gallstone pancreatitis Procedure Performed: Laparoscopic cholecystectomy with intraoperative cholangiogram Post Op Diagnosis: Same - Procedure Note Primary Surgeon: Ever Morgan MD Anesthesia Provider: Dany Watkins CRNA Anesthesia Technique: General ET tube, Local (30 mL of half percent Marcaine) IV Fluids (mL): 1,500 Estimated Blood Loss (mL): 50 Drain/Tube Type: Other (None.) Indications: Gallstone pancreatitis. Complications: None. - Other Other Information/Narrative: After verbal and written informed consent was obtained detailing the operation, the alternatives to the operation including no operation, risks of infection, bleeding requiring transfusion with its risks, nerve injury, and and after I met with the patient confirming the surgery, the patient was brought to the operative suite and placed supine on the operating table. Great care was taken to avoid pressure points to prevent pressure necrosis or nerve injury. Monitoring devices were applied along with TEDs and pneumatic compressive stockings (to prevent DVT). The patient received preoperative antibiotics for surgical prophylaxis. Dany Watkins CRNA sedated and anesthetized the patient for the entire procedure. The patient was prepped and draped in usual sterile manner. A "time in" then confirmed that the patient was identified with 3 identifiers (name, birthdate, and medical record number), the history and physical was in the chart, the signed consent confirming the procedure was in the chart, the patient was in the correct position, the aforementioned prophylac tic measures were in place were given, we had the correct personnel and equipment to complete the procedure and that anesthesia, and the surgical team was given an opportunity to express any concerns. With the agreement of everyone in the room, we proceeded with the operation. The initial incision was at the subxiphoid position due to the previous placement of mesh at the umbilical site. Dissection to the linea alba was completed using blunt dissection. The linea alba was grasped with a Berkley and incised. In a similar manner the peritoneum was grasped and incised using Metzenbaum scissors. In this location, a 12 mm blunt tipped, balloon tipped port was placed and the balloon was inflated to keep the port in position. The abdominal cavity was insufflated with carbon dioxide to a steady-state pressure of 15 mmHg. 3 additional 5 mm ports were placed in adjusted locations for laparoscopic cholecystectomy to avoid the mesh (periumbilical and 2 right subcostal) under direct vision of the 30 degree laparoscope and without incident. The patient was then placed in reverse Trendelenburg position and was rotated slightly to their left. The gallbladder fundus was grasped with an atraumatic grasper. Multiple adhesions had to be taken down by blunt and sharp dissection along with electrocautery. Eventually, I identified the infundibulum and this was then grasped and retracted superiorly and laterally. Dissection was then begun at the angle of Calot. The cystic duct and (slightly medially and posteriorly) was freed and skeletonized. The De Leon catheter was obtained and placed across the distal gallbladder and the catheter was placed into the gallbladder under direct vision with excellent flow of saline and return of bile with sludge. Several intraoperative cholangiograms were obtained showing good distal flow into the duodenum as well as a normal appearing cystic duct with spiral valves of Heister and a possible filling defect within the cystic duct itself. Several attempts were made to show the proximal biliary tree but there was no excellent view of the intrahepatic ducts. Having obtained a view that identified flow into the duodenum without major filling defects and clearly demonstrating that the cystic duct was as identified the De Leon clamp was removed as well as the catheter, and the cystic duct was doubly clipped proximally distally and transected. The cystic artery were clearly identified just posterior to the cystic duct and was doubly clipped proximally and distally and transected. In attempting to remove the gallbladder in a retrograde fashion with electrocautery I encountered what was the second branch of the cystic artery which required control with additional clips. Although control was obtained it was not obtained prior to losing approximately 40 to 50 mL of blood. The gallbladder was then removed from its fossa in a retrograde manner using electrocautery. With the 30 degree 5 mm scope in the periumbilical position, the gallbladder was placed in an Endo Catch bag to be extracted through the 12 mm port site. I irrigated the right upper quadrant with liter of warm sterile saline and the area was aspirated dry. I inspected the gallbladder fossa and there was no bleeding or bile leak. Clips on the cystic duct and cystic artery appeared to be secure. I briefly visually explored the abdomen. There was no other evidence of overt pathology. I injected the port sites at the peritoneal, fascial, and skin levels under direct vision with 0.5% Marcaine. All ports and the Endo Catch containing the gallbladder were removed. Following gallbladder removal, the remaining carbon dioxide was expelled from the abdomen. The fascia the subxiphoid position was approximated using 2 [id number] 0 Vicryl sutures. The skin at each port site was approximated using a subcuticular 4-0 Monocryl. The skin was prepped with benzoin and Steri-Strips were applied. At this point a "timeout" was performed that confirmed that all counts were correct, the procedure that was performed, the blood loss, the IV fluids administered, the patient's condition and any concerns of the operating team had. Dressings were then applied. Having tolerated the procedure well, the patient was extubated and taken to recovery room in good and stable condition. The plan is for outpatient discharge when the patient is adequately recovered. This document was created in part using voice recognition technology. Because of the inherent limitations of the system, occasional same sounding word substitutions and grammatical errors do occur and persist despite proofreading. Please read this document for context. CPT 72792
--- NOTE | 2022-01-07 15:10 | XRAY Report ---
PROCEDURE: OR C-Arm Procedure INDICATIONS: CHOLECYSTECTOMY WITH IOC COMPARISON: None. FINDINGS: Biliary ducts: The surgeon injected contrast into the biliary ducts after cannulation of the cystic duct stump. Visualized intra- and extrahepatic bile ducts are normal in caliber, without strictures. No intraluminal filling defects to suggest retained ductal stones or sludge. No evidence for iatro genic ductal injury. Duodenum: Contrast flows promptly through the sphincter of Oddi into the duodenum, which appears nor mal in caliber. IMPRESSION: No extrahepatic bile duct filling defect, stricture, or cystic duct leak demonstrated. Reviewed by: Baldev Sutherland MD on 01/07/2022 3:09 PM PDT Approved by: Baldev Sutherland MD on 01/07/2022 3:09 PM PDT Station ID: [id number]
[2022-01-07 16:15] VITALS: BP 151/78
[2022-01-07] MEDS ORDERED: HYDROcod/ACETAM 5/325 MG TABLET ONE (16:18)
--- NOTE | 2022-01-07 19:28 | ANESTHESIA POST OP EVALUATION ---
Anesthesia Post Eval - Post Anesthesia Eval Vitals: Last Vital Signs Temp 36.5 C 01/07/22 16:10 Pulse 78 01/07/22 16:10 Resp 16 01/07/22 16:10 BP 151/78 H 01/07/22 16:10 Pulse Ox 98 01/07/22 16:10 O2 Flow Rate CV Function Including HR & BP: Stable Pain Control: Satisfactory Nausea & Vomiting: Negative Mental Status: Baseline Respiratory Status: Airway Patent Hydration Status: Satisfactory Anesthesia Complications: None
== END 2022-01-07 11:21 | disposition home or self-care (01) ==
LOC: SDS 11:20
PROVIDERS: ATTEND Surgery
PROC: BF101ZZ Fluoroscopy of Bile Ducts using Low Osmolar Contrast (ICD-10-PCS; 2022-01-07)
PROC: 0FT44ZZ Resection of Gallbladder, Percutaneous Endoscopic Approach (ICD-10-PCS; principal; 2022-01-07 12:00)
DX: K80.66 Calculus of gallbladder and bile duct with acute and chronic cholecystitis without obstruction (principal); K85.10 Biliary acute pancreatitis without necrosis or infection; E11.9 Type 2 diabetes mellitus without complications; I10 Essential (primary) hypertension
CPT/HCPCS: 47563; A9270; J0690; J1170; J7120; Q9967